=== PATIENT | female | born 1935 | race Caucasian/White ===

== ENCOUNTER 2017-09-15 13:09 | Emergency (ER) | payer OTHER ==
[~2017-09-15 13:09] MED LIST: AMIO200T2 PO; DOCU100T PO; FLUD0.1T2 PO; HYDR200T4 PO; PIND10TA2 PO; POTA10TA18 PO
[2017-09-15 13:53] LABS: BASOPHILS % (AUTO) 0.8 % (0.0-5.0); EOSINOPHILS % (AUTO) 0.9 % (0.0-8.0); HEMATOCRIT 30.6 % (36-48); MEAN CORPUSCULAR HEMOGLOBIN 34.9 pg (27.0-33.0); MEAN CORPUSCULAR HGB CONC 34.7 g/dL (32.0-36.0); MEAN CORPUSCULAR VOLUME 100.6 fL (79-99); MONOCYTES % (AUTO) 10.8 % (3.0-13.0); NEUTROPHILS % (AUTO) 59.5 % (40.0-77.0); NUCLEATED RED BLOOD CELLS 0.1 % (0.0-0.19); PLATELET COUNT (AUTO) 157 K/uL (130-400); RED BLOOD CELL COUNT(AUTO) 3.04 MIL/uL (4.00-5.50); RED CELL DISTRIBUTION WIDTH 14.6 % (11.0-15.5); WHITE BLOOD COUNT (AUTO) 3.4 K/uL (4.8-10.8)
[2017-09-15 14:11] LABS: CREATININE 0.7 mg/dL (0.5-1.5)
[2017-09-15 14:13] LABS: INR 0.95 (0.85-1.15); PARTIAL THROMBOPLASTIN TIME 24.7 SEC (26.3-35.5)
[2017-09-15 14:16] LABS: APPEARANCE,URINE Clear (CLEAR); BILIRUBIN,URINE Negative (NEGATIVE); COLOR,URINE Yellow (YELLOW); GLUCOSE, URINE (UA) Negative (NEGATIVE); KETONES,URINE Negative (NEGATIVE); LEUKOCYTE ESTERASE ,URINE Negative (NEGATIVE); NITRATE,URINE Negative (NEGATIVE); OCCULT BLOOD,URINE Negative (NEGATIVE); PH,URINE 6.5 (5.0-8.0); PROTEIN,URINE Negative (NEGATIVE); UROBILINOGEN,URINE 0.2 mg/dL (0.2-1.0)
[2017-09-15 14:25] LABS: AMPHET/METH SCREEN,URINE NEGATIVE (NEGATIVE); BARBITURATE SCREEN, URINE NEGATIVE (NEGATIVE); BENZODIAZEPINES SCREEN,URINE NEGATIVE (NEGATIVE); CANNABINOID SCREEN,URINE NEGATIVE (NEGATIVE); COCAINE SCREEN,URINE NEGATIVE (NEGATIVE); OPIATE SCREEN,URINE NEGATIVE (NEGATIVE); PHENCYCLIDINE SCREEN,URINE NEGATIVE (NEGATIVE)
[2017-09-15 14:32] LABS: ALBUMIN 3.4 g/dL (3.5-5.0); BILIRUBIN,TOTAL 0.4 mg/dL (0.2-1.0); CREATINE KINASE MB 3.1 ng/mL (0.5-3.6); TOTAL PROTEIN, SERUM 7.4 g/dL (6.0-8.3)
[2017-09-15] MEDS ORDERED: LORAZEPAM 2 MG/ML 1 ML VIAL ONE ×2 (15:03→15:30)
[2017-09-15] MEDS ORDERED: LABETALOL HCL 5 MG/ML 20ML VIAL IV ONE (16:40)
[2017-09-15] MEDS ORDERED: ASPIRIN 81MG TAB.CHEW ONE (17:08)
[2017-12-02] MEDS ORDERED: VITAMIN B12 PO (13:22)
[2017-12-02] MEDS ORDERED: BACL10TA PO (13:22)
[2017-12-02] MEDS ORDERED: ACET-2247 PO (13:22)
[2017-12-02] MEDS ORDERED: PIND10TA2 PO (13:22)
[2017-12-02] MEDS ORDERED: FERS325 PO (13:22)
[2017-12-02] MEDS ORDERED: APIX2.5T PO (13:22)
[2017-12-02] MEDS ORDERED: FOLI1TAB15 PO (13:22)
[2017-12-02] MEDS ORDERED: AEC81 PO (13:22)
== END 2017-09-15 20:01 | disposition short-term general hospital (02) ==
LOC: EDH 13:09
DX: I63.9 Cerebral infarction, unspecified (principal); R55 Syncope and collapse; I10 Essential (primary) hypertension; I48.91 Unspecified atrial fibrillation; E78.5 Hyperlipidemia, unspecified; D64.9 Anemia, unspecified; M32.9 Systemic lupus erythematosus, unspecified; Z88.2 Allergy status to sulfonamides; Z88.8 Allergy status to other drugs, medicaments and biological substances
CPT/HCPCS: 36415; 70450; 70544; 70547; 70551; 71045; 80053; 80305; 81003; 82550; 82553; 82948; 83874; 84484; 85025; 85610; 85730; 93005; 94761; 96374; 96375; 96376; 99291; J2060 ×2; J3490

== ENCOUNTER 2017-12-04 05:56 | Day surgery (SDC) | payer OTHER ==
[2017-12-02 12:54] LABS: HEMATOCRIT 33.2 % (36-48); MEAN CORPUSCULAR HGB CONC 35.7 g/dL (32.0-36.0); PLATELET COUNT (AUTO) 180 K/uL (130-400); RED BLOOD CELL COUNT(AUTO) 3.29 MIL/uL (4.00-5.50); RED CELL DISTRIBUTION WIDTH 13.4 % (11.0-15.5); WHITE BLOOD COUNT (AUTO) 3.9 K/uL (4.8-10.8)
[2017-12-02 13:10] LABS: INR 0.95 (0.85-1.15); PARTIAL THROMBOPLASTIN TIME 26.1 SEC (26.3-35.5)
[2017-12-02 13:27] LABS: CREATININE 0.8 mg/dL (0.5-1.5); POTASSIUM 4.5 mmol/L (3.5-5.1)
[2017-12-02 13:31] LABS: BAND NEUTROPHILS % (MANUAL) 1 % (0-2); LYMPHOCYTES % (MANUAL) 19 % (22-44); MAN.DIFF COMMENT-IMPRESSION MANUAL DIFFERENTIAL; MONOCYTES % (MANUAL) 9 % (2-9); SEGMENTED NEUTROPHILS % 71 % (40-70)
[2017-12-02 13:32] LABS: PLATELET MORPHOLOGY COMMENT ADEQUATE
[2017-12-04] VITALS (8 sets, daily range): BP systolic 145–198; BP diastolic 72–103
[~2017-12-04 05:56] MED LIST changes: +ACET-2247 PO; +AEC81 PO; -AMIO200T2 PO; +APIX2.5T PO; +BACL10TA PO; -DOCU100T PO; +FERS325 PO; +FOLI1TAB15 PO; -HYDR200T4 PO; +VITAMIN B12 PO
[2017-12-04] MEDS ORDERED: LIDOCAINE HCL 1% MDV 50ML VIAL ONE (07:11)
[2017-12-04] MEDS ORDERED: BUPIVACAINE/PF 0.25% 30ML VIAL IJ ONE (07:11)
[2017-12-04] MEDS ORDERED: CEFAZOLIN 1GM / D5W 50ML 150 ML ONE (07:11)
[2017-12-04] MEDS ORDERED: SODIUM CHLORIDE 0.9% 1000ML 1,000 ML IV ONE (07:21)
[2017-12-04] MEDS ORDERED: LABETALOL HCL 5 MG/ML 20ML VIAL IV ONE (07:47)
[2017-12-04] MEDS ORDERED: CEPH-577 PO (08:26)
[2017-12-04] MEDS ORDERED: ACETAMINOPHEN 325 MG TAB PO PRN (08:30)
== END 2017-12-04 11:30 | disposition home or self-care (01) ==
LOC: DAH 05:56
PROVIDERS: ATTEND Internal Medicine Cardiovascular Disease
DX: I48.0 Paroxysmal atrial fibrillation (principal); I10 Essential (primary) hypertension; G45.9 Transient cerebral ischemic attack, unspecified; Z95.1 Presence of aortocoronary bypass graft; Z98.890 Other specified postprocedural states; M32.9 Systemic lupus erythematosus, unspecified; Z79.899 Other long term (current) drug therapy; Z86.73 Personal history of transient ischemic attack (TIA), and cerebral infarction without residual deficits; Z79.01 Long term (current) use of anticoagulants
CPT/HCPCS: 33282; 36415; 80048; 85025; 85610; 85730; 93005; A4606; C1764; J0690; J3490 ×3; J7030

== ENCOUNTER 2018-08-20 14:50 | Inpatient (IN) | payer OTHER ==
[~2018-08-20] VITALS: Ht 165.1 cm; Wt 54.9 kg
[~2018-08-20 14:50] MED LIST changes: -BACL5TAB PO; -CALC-1009 PO; -CYAN-35 PO; -FERR325T22 PO
[2018-08-20 17:20] LABS: BASOPHILS % (AUTO) 0.5 % (0.0-5.0); EOSINOPHILS % (AUTO) 0.7 % (0.0-8.0); HEMATOCRIT 34.6 % (36-48); LYMPHOCYTES % (AUTO) 28.8 % (21.0-51.0); MEAN CORPUSCULAR HGB CONC 33.2 g/dL (32.0-36.0); MEAN CORPUSCULAR VOLUME 102.3 fL (79-99); MONOCYTES % (AUTO) 14.1 % (3.0-13.0); NEUTROPHILS % (AUTO) 55.9 % (40.0-77.0); NUCLEATED RED BLOOD CELLS 0.3 % (0.0-0.19); PLATELET COUNT (AUTO) 183 K/uL (130-400); RED BLOOD CELL COUNT(AUTO) 3.38 MIL/uL (4.00-5.50); RED CELL DISTRIBUTION WIDTH 14.5 % (11.0-15.5); WHITE BLOOD COUNT (AUTO) 4.3 K/uL (4.8-10.8)
[2018-08-20 17:31] LABS: CREATININE 0.9 mg/dL (0.5-1.5); POTASSIUM 4.6 mmol/L (3.5-5.1)
[2018-08-20 17:33] LABS: INR 0.94 (0.85-1.15); PROTHROMBIN TIME 9.9 SEC (9.6-11.6)
[2018-08-20 17:36] LABS: ALBUMIN 3.4 g/dL (3.5-5.0); BILIRUBIN,TOTAL 0.3 mg/dL (0.2-1.0)
[2018-08-20] MEDS ORDERED: ONDANSETRON HCL 4 MG/2 ML VIAL IVP PRN (17:45)
[2018-08-20] MEDS ORDERED: ACETAMINOPHEN 325 MG TAB PO PRN (17:45)
[2018-08-20] MEDS ORDERED: IOHEXOL-350 75 ML VIAL IV ONE (18:09)
[2018-08-20 21:30] VITALS: BP 180/100
[2018-08-20] MEDS: APIXABAN 5 MG TABLET PO SCH (22:58)
[2018-08-20] MEDS ORDERED: BACL5TAB PO (23:17)
[2018-08-20] MEDS ORDERED: FERR325T22 PO (23:17)
[2018-08-20] MEDS ORDERED: CALC-1009 PO (23:17)
[2018-08-20] MEDS ORDERED: CYAN-35 PO (23:17)
[2018-08-20] MEDS ORDERED: ONDANSETRON HCL MDV 20ML 2 MG/ML VIAL IVP PRN (23:30)
[2018-08-20] MEDS ORDERED: HYDRALAZINE HCL 20 MG/ML VIAL IV PRN (23:30)
[2018-08-20] MEDS ORDERED: HYDRALAZINE HCL 20 MG/ML VIAL ONE (23:37)
[2018-08-21] VITALS: BP 169/90
[2018-08-21 00:21] LABS: APPEARANCE,URINE Clear (CLEAR); BILIRUBIN,URINE Negative (NEGATIVE); COLOR,URINE Yellow (YELLOW); GLUCOSE, URINE (UA) Negative (NEGATIVE); KETONES,URINE Negative (NEGATIVE); LEUKOCYTE ESTERASE ,URINE Negative (NEGATIVE); NITRATE,URINE Negative (NEGATIVE); OCCULT BLOOD,URINE Negative (NEGATIVE); PROTEIN,URINE Negative (NEGATIVE); UROBILINOGEN,URINE 0.2 mg/dL (0.2-1.0)
[2018-08-21 04:00] VITALS: BP 136/83
[2018-08-21 06:01] LABS: CREATININE 0.8 mg/dL (0.5-1.5); POTASSIUM 4.2 mmol/L (3.5-5.1)
[2018-08-21 08:00] VITALS: BP 166/92
[2018-08-21] MEDS: APIXABAN 5 MG TABLET PO SCH ×2 (10:29→20:22)
[2018-08-21] MEDS: PINDOLOL 5 MG TAB PO SCH ×2 (10:29→20:22)
[2018-08-21] MEDS: PANTOPRAZOLE SODIUM 40 MG TABLET.DR PO SCH (10:29)
[2018-08-21 11:59] VITALS: BP 109/72
[2018-08-21 16:00] VITALS: BP 143/85
[2018-08-21 20:00] VITALS: BP 162/84
[2018-08-21] MEDS ORDERED: BACLOFEN 10 MG TABLET PO SCH (21:00)
[2018-08-22 00:02] VITALS: BP 170/93
[2018-08-22 04:05] VITALS: BP 152/82
[2018-08-22 05:02] LABS: HEMATOCRIT 33.6 % (36-48); MEAN CORPUSCULAR HGB CONC 33.5 g/dL (32.0-36.0); MEAN CORPUSCULAR VOLUME 101.4 fL (79-99); NUCLEATED RED BLOOD CELLS 0.1 % (0.0-0.19); PLATELET COUNT (AUTO) 188 K/uL (130-400); RED BLOOD CELL COUNT(AUTO) 3.31 MIL/uL (4.00-5.50); RED CELL DISTRIBUTION WIDTH 14.1 % (11.0-15.5); WHITE BLOOD COUNT (AUTO) 4.5 K/uL (4.8-10.8)
[2018-08-22 05:12] LABS: CREATININE 0.6 mg/dL (0.5-1.5); POTASSIUM 3.9 mmol/L (3.5-5.1)
[2018-08-22 08:05] VITALS: BP 123/72
[2018-08-22] MEDS ORDERED: CALCIUM 600 + VITAMIN D 400 TABLET PO SCH (09:00)
[2018-08-22] MEDS ORDERED: FOLIC ACID 1 MG TABLET PO SCH (09:00)
[2018-08-22] MEDS ORDERED: POTASSIUM CHLORIDE 10 MEQ/TAB.SA PO SCH (09:00)
[2018-08-22] MEDS ORDERED: FLUDROCORTISONE ACETATE 0.1 MG TABLET PO SCH (09:00)
[2018-08-22] MEDS ORDERED: CYANOCOBALAMIN (VITAMIN B-12) 1,000 MCG TABLET PO SCH (09:00)
[2018-08-22] MEDS ORDERED: FERROUS SULFATE 325 MG TABLET.DR PO SCH (09:00)
[2018-08-22] MEDS: PINDOLOL 5 MG TAB PO SCH (11:00)
[2018-08-22] MEDS: PANTOPRAZOLE SODIUM 40 MG TABLET.DR PO SCH (11:02)
[2018-08-22] MEDS: APIXABAN 5 MG TABLET PO SCH (11:03)
[2018-08-22 12:00] VITALS: BP 144/89
[2018-08-22] MEDS ORDERED: ATOR20TA65 PO (13:52)
[2018-08-23] MEDS ORDERED: ATORVASTATIN CALCIUM 20 MG TABLET PO SCH (09:00)
== END 2018-08-22 17:25 | disposition home or self-care (01) | DRG 65 ==
LOC: EDH 14:50 → EDHIP 17:10 → 3DH 20:54
PROVIDERS: ADMIT Internal Medicine; ATTEND Internal Medicine
DX: I63.9 Cerebral infarction, unspecified (principal); G81.94 Hemiplegia, unspecified affecting left nondominant side; E78.00 Pure hypercholesterolemia, unspecified; I10 Essential (primary) hypertension; E78.5 Hyperlipidemia, unspecified; I25.10 Atherosclerotic heart disease of native coronary artery without angina pectoris; I48.91 Unspecified atrial fibrillation; M48.02 Spinal stenosis, cervical region; Z79.01 Long term (current) use of anticoagulants; Z86.73 Personal history of transient ischemic attack (TIA), and cerebral infarction without residual deficits
CPT/HCPCS: 36415; 70544; 70547; 70551; 80048; 80053; 80061; 81003; 85025; 85027; 85610; 85730; 97039; G0378; J0360; Q9967

== ENCOUNTER → 2018-08-20 | Outpatient (CLI) | payer OTHER ==
[~2018-08-20] MED LIST changes: +BACL5TAB PO; +CALC-1009 PO; +CEPH-577 PO; +CYAN-35 PO; +FERR325T22 PO
== END | disposition home or self-care (01) ==
LOC: RAH 10:59
PROVIDERS: ATTEND Internal Medicine Cardiovascular Disease
DX: I67.82 Cerebral ischemia (principal); G31.9 Degenerative disease of nervous system, unspecified
CPT/HCPCS: 70551

== ENCOUNTER 2019-06-12 10:56 | Inpatient (IN) | payer OTHER ==
[~2019-06-12] VITALS: Ht 152.4 cm; Wt 53.4 kg
[~2019-06-12 10:56] MED LIST changes: -AEC81 PO; -BACL10TA PO; +BACL5TAB PO; +CALC-1009 PO; -CEPH-577 PO; +CYAN-35 PO; +FERR325T22 PO; -FERS325 PO; -VITAMIN B12 PO
[2019-06-12 11:21] LABS: BASOPHILS % (AUTO) 0.3 % (0.0-5.0); EOSINOPHILS % (AUTO) 0.8 % (0.0-8.0); HEMATOCRIT 33.3 % (36-48); LYMPHOCYTES % (AUTO) 31.9 % (21.0-51.0); MEAN CORPUSCULAR HEMOGLOBIN 34.7 pg (27.0-33.0); MEAN CORPUSCULAR HGB CONC 34.7 g/dL (32.0-36.0); MEAN CORPUSCULAR VOLUME 99.9 fL (79-99); MONOCYTES % (AUTO) 9.7 % (3.0-13.0); NEUTROPHILS % (AUTO) 57.3 % (40.0-77.0); PLATELET COUNT (AUTO) 147 K/uL (130-400); RED BLOOD CELL COUNT(AUTO) 3.33 MIL/uL (4.00-5.50); RED CELL DISTRIBUTION WIDTH 15.1 % (11.0-15.5); WHITE BLOOD COUNT (AUTO) 3.7 K/uL (4.8-10.8)
[2019-06-12 11:32] LABS: CREATININE 0.9 mg/dL (0.5-1.5); POTASSIUM 3.9 mmol/L (3.5-5.1)
[2019-06-12 11:37] LABS: ALBUMIN 3.3 g/dL (3.5-5.0); BILIRUBIN,TOTAL 0.3 mg/dL (0.2-1.0); INR 0.98 (0.85-1.15); PARTIAL THROMBOPLASTIN TIME 25.8 SEC (26.3-35.5); PROTHROMBIN TIME 10.3 SEC (9.6-11.6); TOTAL PROTEIN, SERUM 7.4 g/dL (6.0-8.3)
[2019-06-12] MEDS ORDERED: METOPROLOL TARTRATE 1 MG/ML 5ML VIAL IV ONE (11:59)
[2019-06-12] MEDS ORDERED: DILTIAZEM HCL 125 MG/25 ML VIAL IV ONE (13:01)
[2019-06-12] MEDS ORDERED: SODIUM CHLORIDE 0.9% 100 ML IV ONE (13:02)
[2019-06-12] MEDS ORDERED: ONDANSETRON HCL 4 MG/2 ML VIAL IV PRN (14:15)
[2019-06-12] MEDS ORDERED: IPRATROPIUM 0.5 MG/2.5 ML INH IH PRN (14:15)
[2019-06-12] MEDS ORDERED: MAG HYDROX/AL HYDROX/SIMETH ES 30 ML SUSP UDCUP PO PRN (14:15)
[2019-06-12] MEDS ORDERED: NITROGLYCERIN 0.4 MG SL TAB SL PRN (14:15)
[2019-06-12] MEDS ORDERED: HYDRALAZINE HCL 20 MG/ML VIAL IV PRN (14:15)
[2019-06-12] MEDS ORDERED: LACTULOSE 20 GM/30 ML UDCUP PO PRN (14:15)
[2019-06-12] MEDS ORDERED: ACETAMINOPHEN 325 MG TAB PO PRN (14:15)
[2019-06-12] MEDS ORDERED: GUAIFENESIN-DM 200/20 MG 10 ML PO PRN (14:15)
[2019-06-12 15:30] VITALS: BP 108/64
--- NOTE | 2019-06-12 15:30 | NUR ---
ADMISSION RECEIVED PT FROM ER, A&OX3, CALM COOPERATIVE AND DOES NOT APPEAR TO BE IN ANY DISTRESS NOR ANY NEURO DEFICITS PRESENT. PT IS AMBULATORY FROM GURNEY TO BED, GAIT SLOW BUT STEADY WITH ASSIST. TELE MONITOR DISPLAYS AFIB WITH A RATE OF 80-90 BEATS PER MINUTE. HIRENZEM DRIP STOPPED, ARASELI MESSINA PA-C AT BEDSIDE, UPDATE GIVEN.
[2019-06-12] MEDS ORDERED: DILTIAZEM 125MG+100 ML NS 125 ML IV SCH (16:45)
[2019-06-12 19:22] VITALS: BP 131/57
[2019-06-12] MEDS: METOPROLOL TARTRATE 25 MG TAB PO SCH (19:38)
[2019-06-12] MEDS: BACLOFEN 10 MG TABLET PO SCH (19:38)
[2019-06-12] MEDS: FAMOTIDINE 20MG TAB 20 MG TAB PO SCH (19:38)
[2019-06-12] MEDS: APIXABAN 2.5 MG TABLET PO SCH (19:40)
[2019-06-12 23:31] VITALS: BP 134/81
[2019-06-13 03:50] LABS: BASOPHILS % (AUTO) 0.4 % (0.0-5.0); EOSINOPHILS % (AUTO) 0.8 % (0.0-8.0); LYMPHOCYTES % (AUTO) 28.5 % (21.0-51.0); MEAN CORPUSCULAR HEMOGLOBIN 34.8 pg (27.0-33.0); MEAN CORPUSCULAR HGB CONC 34.7 g/dL (32.0-36.0); MONOCYTES % (AUTO) 9.7 % (3.0-13.0); NEUTROPHILS % (AUTO) 60.6 % (40.0-77.0); PLATELET COUNT (AUTO) 135 K/uL (130-400); RED CELL DISTRIBUTION WIDTH 15.1 % (11.0-15.5); WHITE BLOOD COUNT (AUTO) 5.2 K/uL (4.8-10.8)
[2019-06-13 03:57] VITALS: BP 132/83
[2019-06-13 04:01] LABS: CREATININE 0.8 mg/dL (0.5-1.5); POTASSIUM 3.7 mmol/L (3.5-5.1)
[2019-06-13 04:05] LABS: ALBUMIN 3.1 g/dL (3.5-5.0); BILIRUBIN,TOTAL 0.3 mg/dL (0.2-1.0); MAGNESIUM 1.7 mg/dL (1.80-2.40); PHOSPHORUS 3.1 mg/dL (2.5-4.9)
[2019-06-13 07:00] VITALS: BP 145/93
--- NOTE | 2019-06-13 07:40 | NUR ---
ASSESSMENT ENCOUNTERED PT A&OX3 BUT FORGETFUL, PT DENIES PAIN, SOB, NAUSEA. TELE MONITOR DISPLAYS AFIB WITH A RATE OF 90-120 BEATS PER MINUTE, CARDIZEM IV DRIP RESTARTED AT 5MG/HR, PT INFORMED TO REMAIN IN BED UNTIL HEART RATE IMPROVED. CALL LIGHT WITHIN REACH, BED ALARM ACTIVATED, SIDE RAILS UP, PATIENT IN FULL VIEW OF RN STATION.
[2019-06-13] MEDS: CYANOCOBALAMIN (VITAMIN B-12) 1,000 MCG TABLET PO SCH (08:14)
[2019-06-13] MEDS: FERROUS SULFATE 325 MG TABLET.DR PO SCH (08:14)
[2019-06-13] MEDS: APIXABAN 2.5 MG TABLET PO SCH ×2 (08:15→20:08)
[2019-06-13] MEDS: POTASSIUM CHLORIDE 10 MEQ/TAB.SA PO SCH (08:15)
[2019-06-13] MEDS: CALCIUM 600 + VITAMIN D 400 TABLET PO SCH (08:15)
[2019-06-13] MEDS: FAMOTIDINE 20MG TAB 20 MG TAB PO SCH ×2 (08:15→20:08)
[2019-06-13] MEDS: METOPROLOL TARTRATE 25 MG TAB PO SCH ×2 (08:15→20:09)
[2019-06-13] MEDS: FOLIC ACID 1 MG TABLET PO SCH (08:17)
[2019-06-13] MEDS: FLUDROCORTISONE ACETATE 0.1 MG TABLET PO SCH (09:00)
[2019-06-13 11:00] VITALS: BP 154/94
[2019-06-13 15:00] VITALS: BP 142/69
[2019-06-13] MEDS ORDERED: DILTIAZEM HCL 180 MG CAP.SR.24H PO ONE (18:33)
[2019-06-13 18:58] LABS: APPEARANCE,URINE Cloudy (CLEAR); BILIRUBIN,URINE Negative (NEGATIVE); COLOR,URINE Yellow (YELLOW); GLUCOSE, URINE (UA) Negative (NEGATIVE); KETONES,URINE Negative (NEGATIVE); LEUKOCYTE ESTERASE ,URINE Large (NEGATIVE); NITRATE,URINE Positive (NEGATIVE); OCCULT BLOOD,URINE Negative (NEGATIVE); PH,URINE 7.5 (5.0-8.0); PROTEIN,URINE Trace mg/dL (NEGATIVE)
--- NOTE | 2019-06-13 19:14 | NUR ---
cm note met with patient and states resides at home with spouse bárbara and adult grandson Vasquez. pt states ambulates with cane or walker, and has a w/c for longer distances., pt states able to do own bath, and spouse or grandson transport her to mds as needed and assist her with adls as needed states dc plan is back to home at time of dc. Addendum: 06/13/19 at 7 by NORA DAVIS CM Amended: Links added.
[2019-06-13 19:21] LABS: BACTERIA,URINE Moderate /HPF (None Seen); MUCUS,URINE Rare LPF (None Seen); SQUAMOUS EPITHELIAL CELL,UR 0-2 /HPF (0-2)
[2019-06-13] MEDS: BACLOFEN 10 MG TABLET PO SCH (20:08)
[2019-06-13 20:25] VITALS: BP 164/101
[2019-06-13 23:56] VITALS: BP 118/74
[2019-06-14 04:01] LABS: BASOPHILS % (AUTO) 0.3 % (0.0-5.0); EOSINOPHILS % (AUTO) 0.5 % (0.0-8.0); MEAN CORPUSCULAR HEMOGLOBIN 34.5 pg (27.0-33.0); MEAN CORPUSCULAR HGB CONC 34.4 g/dL (32.0-36.0); MEAN CORPUSCULAR VOLUME 100.3 fL (79-99); MONOCYTES % (AUTO) 9.7 % (3.0-13.0); NEUTROPHILS % (AUTO) 62.5 % (40.0-77.0); PLATELET COUNT (AUTO) 139 K/uL (130-400); RED BLOOD CELL COUNT(AUTO) 3.29 MIL/uL (4.00-5.50); WHITE BLOOD COUNT (AUTO) 5.3 K/uL (4.8-10.8)
[2019-06-14 04:16] VITALS: BP 142/94
[2019-06-14 04:20] LABS: CREATININE 0.6 mg/dL (0.5-1.5); MAGNESIUM 1.6 mg/dL (1.80-2.40); PHOSPHORUS 2.8 mg/dL (2.5-4.9); POTASSIUM 3.8 mmol/L (3.5-5.1)
[2019-06-14 07:44] VITALS: BP 147/85
[2019-06-14] MEDS: CALCIUM 600 + VITAMIN D 400 TABLET PO SCH (09:14)
[2019-06-14] MEDS: FOLIC ACID 1 MG TABLET PO SCH (09:14)
[2019-06-14] MEDS: CYANOCOBALAMIN (VITAMIN B-12) 1,000 MCG TABLET PO SCH (09:14)
[2019-06-14] MEDS: FAMOTIDINE 20MG TAB 20 MG TAB PO SCH ×2 (09:14→20:04)
[2019-06-14] MEDS: FLUDROCORTISONE ACETATE 0.1 MG TABLET PO SCH (09:14)
[2019-06-14] MEDS ORDERED: MAGNESIUM 2GM PREMIX 50ML 50 ML IV PRN ×2 (09:15→10:30)
[2019-06-14] MEDS: APIXABAN 2.5 MG TABLET PO SCH ×2 (09:15→20:08)
[2019-06-14] MEDS: METOPROLOL TARTRATE 25 MG TAB PO SCH ×2 (09:15→20:04)
[2019-06-14] MEDS: DILTIAZEM HCL 180 MG CAP.SR.24H PO SCH (09:15)
[2019-06-14] MEDS: POTASSIUM CHLORIDE 10 MEQ/TAB.SA PO SCH (09:16)
[2019-06-14] MEDS: FERROUS SULFATE 325 MG TABLET.DR PO SCH (09:19)
[2019-06-14] MEDS: CEFTRIAXONE SODIUM 1 GM IVP SCH ×2 (10:30→22:37)
[2019-06-14 11:27] VITALS: BP 133/70
[2019-06-14 16:02] VITALS: BP 132/71
[2019-06-14 19:54] VITALS: BP_SYST 107; BP_SYST 133; BP_DIAS 51; BP_DIAS 60
[2019-06-14] MEDS: BACLOFEN 10 MG TABLET PO SCH (20:08)
[2019-06-14 23:54] VITALS: BP 98/45
[2019-06-15 03:42] LABS: BASOPHILS % (AUTO) 0.3 % (0.0-5.0); EOSINOPHILS % (AUTO) 0.4 % (0.0-8.0); HEMATOCRIT 30.9 % (36-48); LYMPHOCYTES % (AUTO) 31.6 % (21.0-51.0); MEAN CORPUSCULAR HGB CONC 34.8 g/dL (32.0-36.0); MEAN CORPUSCULAR VOLUME 100.5 fL (79-99); MONOCYTES % (AUTO) 12.1 % (3.0-13.0); NEUTROPHILS % (AUTO) 55.6 % (40.0-77.0); NUCLEATED RED BLOOD CELLS 0.1 % (0.0-0.19); PLATELET COUNT (AUTO) 128 K/uL (130-400); RED BLOOD CELL COUNT(AUTO) 3.07 MIL/uL (4.00-5.50); RED CELL DISTRIBUTION WIDTH 14.9 % (11.0-15.5)
[2019-06-15 03:51] LABS: CREATININE 0.7 mg/dL (0.5-1.5); MAGNESIUM 1.9 mg/dL (1.80-2.40); POTASSIUM 3.9 mmol/L (3.5-5.1)
[2019-06-15 04:28] VITALS: BP 118/69
[2019-06-15] MEDS: CYANOCOBALAMIN (VITAMIN B-12) 1,000 MCG TABLET PO SCH (07:25)
[2019-06-15] MEDS: CEFTRIAXONE SODIUM 1 GM IVP SCH ×2 (07:25→20:26)
[2019-06-15] MEDS: METOPROLOL TARTRATE 25 MG TAB PO SCH ×2 (07:26→20:25)
[2019-06-15] MEDS: FOLIC ACID 1 MG TABLET PO SCH (07:26)
[2019-06-15] MEDS: DILTIAZEM HCL 180 MG CAP.SR.24H PO SCH (07:26)
[2019-06-15] MEDS: APIXABAN 2.5 MG TABLET PO SCH ×2 (07:26→20:25)
[2019-06-15] MEDS: FAMOTIDINE 20MG TAB 20 MG TAB PO SCH ×2 (07:26→20:47)
[2019-06-15] MEDS: CALCIUM 600 + VITAMIN D 400 TABLET PO SCH (07:26)
[2019-06-15] MEDS: FLUDROCORTISONE ACETATE 0.1 MG TABLET PO SCH (07:26)
[2019-06-15] MEDS: FERROUS SULFATE 325 MG TABLET.DR PO SCH (07:26)
[2019-06-15] MEDS: POTASSIUM CHLORIDE 10 MEQ/TAB.SA PO SCH (07:26)
--- NOTE | 2019-06-15 08:00 | NUR ---
ASSESSMENT PT IS AWAKE AND ALERT, DENIES CP DENIES SOB DENIES NV NO COMPLAINTS RESTING IN BED. NO VISIBLE SIGNS OF DISTRESS NOTED, BREATHING PATTERN IS EVEN AND UNLABORED. CALL LIGHT WITHIN REACH. AM MEDS GIVEN AND TOLERATED WELL. DOOR AJAR BLINDS OPEN.
[2019-06-15 08:04] VITALS: BP 118/88
[2019-06-15 12:03] VITALS: BP 111/73
[2019-06-15 16:31] VITALS: BP 111/42
--- NOTE | 2019-06-15 18:00 | NUR ---
STATUS RESTING IN BED. DENIES PAIN NO COMPLAINTS, CALL LIGHT WITHIN REACH.
[2019-06-15 19:27] VITALS: BP 151/91
[2019-06-15] MEDS: BACLOFEN 10 MG TABLET PO SCH (20:25)
[2019-06-15 23:44] VITALS: BP 149/88
[2019-06-16 04:37] LABS: CREATININE 0.7 mg/dL (0.5-1.5); POTASSIUM 3.8 mmol/L (3.5-5.1)
[2019-06-16 04:40] LABS: HEMATOCRIT 30.5 % (36-48); MEAN CORPUSCULAR HEMOGLOBIN 34.7 pg (27.0-33.0); MEAN CORPUSCULAR HGB CONC 34.8 g/dL (32.0-36.0); MEAN CORPUSCULAR VOLUME 99.6 fL (79-99); PLATELET COUNT (AUTO) 137 K/uL (130-400); RED BLOOD CELL COUNT(AUTO) 3.06 MIL/uL (4.00-5.50); RED CELL DISTRIBUTION WIDTH 14.7 % (11.0-15.5)
[2019-06-16 05:24] VITALS: BP 140/83
[2019-06-16] MEDS: CYANOCOBALAMIN (VITAMIN B-12) 1,000 MCG TABLET PO SCH (07:32)
[2019-06-16] MEDS: APIXABAN 2.5 MG TABLET PO SCH ×2 (07:32→21:11)
[2019-06-16] MEDS: METOPROLOL TARTRATE 25 MG TAB PO SCH ×2 (07:32→21:11)
[2019-06-16] MEDS: CALCIUM 600 + VITAMIN D 400 TABLET PO SCH (07:32)
[2019-06-16] MEDS: FAMOTIDINE 20MG TAB 20 MG TAB PO SCH ×2 (07:32→21:10)
[2019-06-16] MEDS: DILTIAZEM HCL 180 MG CAP.SR.24H PO SCH (07:32)
[2019-06-16] MEDS: FERROUS SULFATE 325 MG TABLET.DR PO SCH (07:32)
[2019-06-16] MEDS: FOLIC ACID 1 MG TABLET PO SCH (07:32)
[2019-06-16] MEDS: POTASSIUM CHLORIDE 10 MEQ/TAB.SA PO SCH (07:33)
[2019-06-16] MEDS: CEFTRIAXONE SODIUM 1 GM IVP SCH ×2 (07:33→21:47)
[2019-06-16] MEDS: FLUDROCORTISONE ACETATE 0.1 MG TABLET PO SCH (07:33)
[2019-06-16 07:59] VITALS: BP 140/99
--- NOTE | 2019-06-16 08:15 | NUR ---
ASSESSMENT PT IS AAOX3 DENIES CP DENIES SOB DENIES NV COMPLAINS OF HEADACHE, PRN TYLENOL GIVEN. RESTING IN BED. AM MEDS GIVEN. CHAR BROWN PA-C ROUNDED, SAW PATIENT. ORDERS RECEIVED
[2019-06-16] MEDS: ACETAMINOPHEN 325 MG TAB PO PRN (08:22)
[2019-06-16] MEDS ORDERED: PROPAFENONE HCL 150 MG TABLET PO SCH (09:45)
--- NOTE | 2019-06-16 10:01 | NUR ---
DR UMANZOR ROUNDED PLAN FOR CARDIOVERSION TOMORROW AM WITH ANESTHESIA AT BEDSIDE. CALLED WELFARE CASE WORKER ROSALINDA, LEFT MESSAGE ON HER VOICEMAIL REGARDING NEED FOR ANESTHESIA PER DR UMANZOR.
--- NOTE | 2019-06-16 10:45 | NUR ---
DR ATLAMIRANO ROUNDED SAW PATIENT, ORDERS RECEIVED
--- NOTE | 2019-06-16 10:50 | NUR ---
FAXED ORDER FOR CARDIOVERSION W/ANESTHESIA TO OR SCHEDULING #7379. VASU AT OR SCHED MADE AWARE. CONSENT FOR CARDIOVERSION OBTAINED
[2019-06-16 11:39] VITALS: BP 126/75
--- NOTE | 2019-06-16 12:45 | NUR ---
DOWN TO CT SCAN VIA WC, BACK TO ROOM. ASSISTED TO BED. NO COMPLAINTS AT THIS TIME, CALL LIGHT WITHIN REACH.
[2019-06-16 16:22] VITALS: BP 125/66
[2019-06-16] MEDS: PROPAFENONE HCL 150 MG TABLET PO SCH (17:00)
[2019-06-16 20:14] VITALS: BP 125/78
[2019-06-16] MEDS: BACLOFEN 10 MG TABLET PO SCH (21:11)
[2019-06-17] VITALS (7 sets, daily range): BP systolic 120–141; BP diastolic 58–90
[2019-06-17] MEDS: PROPAFENONE HCL 150 MG TABLET PO SCH ×4 (01:10→17:40)
[2019-06-17] MEDS: ACETAMINOPHEN 325 MG TAB PO PRN ×2 (04:52→16:06)
--- NOTE | 2019-06-17 05:57 | NUR ---
STATUS PATIENT MORE LETHARGIC AND DIFFICULT TO AROUSE. ONCE AROUSED RESPONDS APPROPRIATELY VERBALLY AND NODS HEAD YES AND NO. BRIEFLY THEN BACK TO BEING LETHARGIC. TRACKS VISUALLY PT RHYTHM IS A FLUTTER 100 PER TELEMETRY. VS BP 128/80 SPO2 96% R 24. FSBS 125. ROLL SHEETING CUTTER FOR BENCHMARK PAGED AND NOTIFIED. PATIENT HAD CT SCAN ON 06/16/19, RESULTS REVIEWED. ORDERS FOR STAT AMMONIA LEVEL. ORDERS TO NOTIFY NEUROLOGY IN AM.
[2019-06-17 06:09] LABS: HEMATOCRIT 29.7 % (36-48); MEAN CORPUSCULAR HEMOGLOBIN 34.8 pg (27.0-33.0); MEAN CORPUSCULAR VOLUME 99.4 fL (79-99); PLATELET COUNT (AUTO) 137 K/uL (130-400); RED BLOOD CELL COUNT(AUTO) 2.98 MIL/uL (4.00-5.50); RED CELL DISTRIBUTION WIDTH 14.4 % (11.0-15.5)
[2019-06-17 06:10] LABS: CREATININE 0.7 mg/dL (0.5-1.5); POTASSIUM 3.7 mmol/L (3.5-5.1)
--- NOTE | 2019-06-17 06:46 | NUR ---
STATUS NEUROLOGY CALLED. LEFT MESSAGE
--- NOTE | 2019-06-17 07:30 | NUR ---
RESTING IN BED WITH HOB AT 30 DEGREES, RESP.'S EVEN AND UNLABORED. EYES CLOSED, OPENS EYES TO VERBAL COMMAND. LETHARGIC BUT AROUSABLE. DENIES ANY C/O SOB, DENIES ANY CURRENT PAIN. BED LOW, SIDE RAILS UP X3. CALL LIGHT PLACED IN PT.'S HAND. ROOM DOOR OPEN, VISIBLE FROM NURSE'S STATION.
[2019-06-17 07:47] LABS: ABG HCO3 20.4 mmol/L (21.0-28.0); ABG OXYGEN SATURATION 97.3 % (95.0-99.0); ABG PCO2 26 mmHg (32-45)
--- NOTE | 2019-06-17 07:53 | NUR ---
ABG RESULTS HANDED TO KRISTIE BEATTY, AT NURSE'S STATION. NO NEW ORDERS RECEIVED AT THIS TIME.
[2019-06-17] MEDS: DILTIAZEM HCL 180 MG CAP.SR.24H PO SCH ×2 (08:43→10:54)
[2019-06-17] MEDS: CALCIUM 600 + VITAMIN D 400 TABLET PO SCH ×2 (08:43→10:54)
[2019-06-17] MEDS: POTASSIUM CHLORIDE 10 MEQ/TAB.SA PO SCH ×2 (08:44→10:53)
[2019-06-17] MEDS: APIXABAN 2.5 MG TABLET PO SCH ×3 (08:44→21:12)
[2019-06-17] MEDS: FAMOTIDINE 20MG TAB 20 MG TAB PO SCH ×3 (08:44→21:12)
[2019-06-17] MEDS: FLUDROCORTISONE ACETATE 0.1 MG TABLET PO SCH ×2 (08:44→10:53)
[2019-06-17] MEDS: CYANOCOBALAMIN (VITAMIN B-12) 1,000 MCG TABLET PO SCH ×2 (08:44→10:54)
[2019-06-17] MEDS: FERROUS SULFATE 325 MG TABLET.DR PO SCH ×2 (08:44→10:54)
[2019-06-17] MEDS: METOPROLOL TARTRATE 25 MG TAB PO SCH ×3 (08:44→21:13)
[2019-06-17] MEDS: FOLIC ACID 1 MG TABLET PO SCH ×2 (08:44→10:54)
--- NOTE | 2019-06-17 09:10 | NUR ---
PT. SITTING UP IN BED. AAOX3, RESP.'S EVEN AND UNLABORED. DENIES ANY C/O SOB, DENIES ANY PAIN. DENIES ANY DIZZINESS OR LIGHTHEADEDNESS. CALL LIGHT WITHIN REACH, VERBALIZED ABILITY TO USE. ROOM DOOR OPEN, VISIBLE FROM NURSE'S STATION.
--- NOTE | 2019-06-17 10:15 | NUR ---
DR. ALTAMIRANO IN ROOM SPEAKING WITH PT. AND INFORMING PT. OF EEG RESULTS. DR. ALTAMIRANO MADE AWARE BY THIS NURSE RE:PT.'S EPISODE OF LETHARGY, VERBALIZED UNDERSTANDING. NO NEW ORDERS RECEIVED.
[2019-06-17] MEDS: CEFTRIAXONE SODIUM 1 GM IVP SCH ×2 (10:55→21:57)
--- NOTE | 2019-06-17 13:44 | NUR ---
DR. SOLORIO IN ROOM SPEAKING WITH PT. RE:PLAN OF CARE.
[2019-06-17] MEDS: SODIUM CHLORIDE 1,000 MG TAB PO SCH ×3 (14:15→21:54)
--- NOTE | 2019-06-17 15:01 | NUR ---
RD Screen - LOS x 5 Pt s/p Cardioversion procedure. Diet resumed and Pt tolerating Heart healthy Diet order with no report of GI distress and PO intake at 75-100%. Upon visit, Pt reports difficulty eating due to shakiness; RD recommend feeding assistance as needed. Recommend to continue current diet order. Pt LBM 06/17. Pt monitored labs: Na 125, Cl 93, Glu 125, Alb 3.1. RD to continue to monitor. Please notify RD as additional nutrition concerns arise. Thank you. Addendum: 06/17/19 at [address] Amended: Links added.
[2019-06-17] MEDS ORDERED: PHARMACY COMMUNICATION MISC SCH (15:30)
--- NOTE | 2019-06-17 16:10 | NUR ---
HEATING PACKS X3 (WRAPPED IN PILLOW CASE) PROVIDED TO LEFT HIP PAIN.
--- NOTE | 2019-06-17 17:17 | NUR ---
DR. Lilliana IBARRA IN ROOM SPEAKING WITH PT. RE:PLAN OF CARE. QUESTIONS ANSWERED BY DR. IBARRA.
[2019-06-17] MEDS: BACLOFEN 10 MG TABLET PO SCH (21:12)
[2019-06-17] MEDS ORDERED: SODIUM CHLORIDE 0.9% 10 ML VIAL ONE (21:56)
[2019-06-18] MEDS: PROPAFENONE HCL 150 MG TABLET PO SCH ×3 (01:24→17:45)
[2019-06-18 03:52] LABS: HEMATOCRIT 29.1 % (36-48); MEAN CORPUSCULAR HEMOGLOBIN 35.1 pg (27.0-33.0); MEAN CORPUSCULAR HGB CONC 35.1 g/dL (32.0-36.0); MEAN CORPUSCULAR VOLUME 99.7 fL (79-99); PLATELET COUNT (AUTO) 135 K/uL (130-400); RED BLOOD CELL COUNT(AUTO) 2.92 MIL/uL (4.00-5.50); RED CELL DISTRIBUTION WIDTH 14.8 % (11.0-15.5); WHITE BLOOD COUNT (AUTO) 7.5 K/uL (4.8-10.8)
[2019-06-18 04:00] VITALS: BP 136/78
[2019-06-18 04:02] LABS: CREATININE 0.8 mg/dL (0.5-1.5); POTASSIUM 4.4 mmol/L (3.5-5.1)
[2019-06-18] MEDS: SODIUM CHLORIDE 1,000 MG TAB PO SCH ×3 (06:09→21:46)
[2019-06-18 07:46] VITALS: BP 116/92
[2019-06-18] MEDS: FERROUS SULFATE 325 MG TABLET.DR PO SCH (08:48)
[2019-06-18] MEDS: POTASSIUM CHLORIDE 10 MEQ/TAB.SA PO SCH (08:49)
[2019-06-18] MEDS: DILTIAZEM HCL 180 MG CAP.SR.24H PO SCH (08:50)
[2019-06-18] MEDS: APIXABAN 2.5 MG TABLET PO SCH ×2 (08:50→21:42)
[2019-06-18] MEDS: FAMOTIDINE 20MG TAB 20 MG TAB PO SCH ×2 (08:50→21:37)
[2019-06-18] MEDS: CYANOCOBALAMIN (VITAMIN B-12) 1,000 MCG TABLET PO SCH (08:51)
[2019-06-18] MEDS: METOPROLOL TARTRATE 25 MG TAB PO SCH ×2 (08:51→21:41)
[2019-06-18] MEDS: FOLIC ACID 1 MG TABLET PO SCH (08:51)
[2019-06-18] MEDS: CALCIUM 600 + VITAMIN D 400 TABLET PO SCH (08:51)
[2019-06-18] MEDS: FLUDROCORTISONE ACETATE 0.1 MG TABLET PO SCH (08:51)
[2019-06-18] MEDS ORDERED: SODIUM CHLORIDE 1,000 MG TAB PO SCH (09:00)
[2019-06-18] MEDS: CEFTRIAXONE SODIUM 1 GM IVP SCH ×2 (11:23→21:42)
[2019-06-18] MEDS: ACETAMINOPHEN 325 MG TAB PO PRN ×2 (11:23→18:30)
[2019-06-18 11:52] VITALS: BP 115/74
--- NOTE | 2019-06-18 13:30 | NUR ---
REPOSITIONED IN RECLINER FOR COMFORT. CALL LIGHT WITHIN REACH. ROOM DOOR OPEN, VISIBLE FROM NURSE'S STATION.
[2019-06-18 15:06] VITALS: BP 89/58
--- NOTE | 2019-06-18 16:00 | NUR ---
OFFERED PT. ASSISTANCE TO RETURN TO BED IF WISHES. PT. DECLINED, STATES WOULD LIKE TO STAY IN RECLINER. CALL LIGHT WITHIN REACH. ROOM DOOR OPEN, VISIBLE FROM NURSE'S STATION.
--- NOTE | 2019-06-18 18:05 | NUR ---
ASSISTED BACK TO BED FROM RECLINER; ONE PERSON ASSIST. CALL LIGHT WITHIN REACH. ROOM DOOR OPEN, VISIBLE FROM NURSE'S STATION.
[2019-06-18 19:34] VITALS: BP 131/79
[2019-06-18] MEDS: BACLOFEN 10 MG TABLET PO SCH (21:41)
[2019-06-18 23:41] VITALS: BP 112/71
[2019-06-19 02:44] VITALS: BP 136/74
[2019-06-19] MEDS: PROPAFENONE HCL 150 MG TABLET PO SCH ×3 (02:48→17:17)
[2019-06-19 04:18] LABS: CREATININE 0.6 mg/dL (0.5-1.5); POTASSIUM 4.2 mmol/L (3.5-5.1)
[2019-06-19 04:24] LABS: HEMATOCRIT 27.5 % (36-48); MEAN CORPUSCULAR HEMOGLOBIN 34.4 pg (27.0-33.0); MEAN CORPUSCULAR HGB CONC 34.2 g/dL (32.0-36.0); MEAN CORPUSCULAR VOLUME 100.7 fL (79-99); PLATELET COUNT (AUTO) 128 K/uL (130-400); RED BLOOD CELL COUNT(AUTO) 2.73 MIL/uL (4.00-5.50); RED CELL DISTRIBUTION WIDTH 14.9 % (11.0-15.5); WHITE BLOOD COUNT (AUTO) 4.8 K/uL (4.8-10.8)
[2019-06-19] MEDS: SODIUM CHLORIDE 1,000 MG TAB PO SCH ×3 (06:11→20:52)
[2019-06-19] MEDS: ACETAMINOPHEN 325 MG TAB PO PRN ×2 (06:34→20:50)
[2019-06-19 07:36] VITALS: BP 133/75
[2019-06-19] MEDS: FLUDROCORTISONE ACETATE 0.1 MG TABLET PO SCH ×2 (10:03→20:52)
[2019-06-19] MEDS: CALCIUM 600 + VITAMIN D 400 TABLET PO SCH (10:03)
[2019-06-19] MEDS: FERROUS SULFATE 325 MG TABLET.DR PO SCH (10:03)
[2019-06-19] MEDS: CEFTRIAXONE SODIUM 1 GM IVP SCH ×2 (10:03→23:01)
[2019-06-19] MEDS: DILTIAZEM HCL 180 MG CAP.SR.24H PO SCH (10:03)
[2019-06-19] MEDS: FAMOTIDINE 20MG TAB 20 MG TAB PO SCH ×2 (10:03→20:50)
[2019-06-19] MEDS: APIXABAN 2.5 MG TABLET PO SCH ×2 (10:04→20:52)
[2019-06-19] MEDS: FOLIC ACID 1 MG TABLET PO SCH (10:04)
[2019-06-19] MEDS: CYANOCOBALAMIN (VITAMIN B-12) 1,000 MCG TABLET PO SCH (10:04)
[2019-06-19] MEDS: POTASSIUM CHLORIDE 10 MEQ/TAB.SA PO SCH (10:04)
[2019-06-19] MEDS: METOPROLOL TARTRATE 25 MG TAB PO SCH ×2 (10:04→20:50)
--- NOTE | 2019-06-19 11:32 | NUR ---
DC PLAN VISITED WITH PATIENT SEVERAL TIMES. PATIENT APPEARED TIRED MOST OF THEM WAS ASLEEP DID NOT WANT TO ANSWER QUESTIONS. SPOKE TO HER YESTERDAY SAID NO PLAN IS STILL TO GO HOME. REFUSES TO GO TO A FACILITY. Addendum: 06/19/19 at 1133 by MIREILLE VARMA RN CM Amended: Links added.
[2019-06-19 11:45] VITALS: BP 123/59
[2019-06-19 15:39] VITALS: BP 114/72
[2019-06-19] MEDS: BACLOFEN 10 MG TABLET PO SCH (20:50)
[2019-06-19 20:54] VITALS: BP 155/88
[2019-06-19 23:54] VITALS: BP 143/79
[2019-06-20] MEDS: PROPAFENONE HCL 150 MG TABLET PO SCH ×3 (01:32→17:28)
[2019-06-20 04:15] LABS: CREATININE 0.6 mg/dL (0.5-1.5); POTASSIUM 3.7 mmol/L (3.5-5.1)
[2019-06-20 04:18] LABS: HEMATOCRIT 27.2 % (36-48); MEAN CORPUSCULAR HEMOGLOBIN 34.8 pg (27.0-33.0); MEAN CORPUSCULAR HGB CONC 35.1 g/dL (32.0-36.0); PLATELET COUNT (AUTO) 143 K/uL (130-400); RED BLOOD CELL COUNT(AUTO) 2.75 MIL/uL (4.00-5.50); RED CELL DISTRIBUTION WIDTH 14.7 % (11.0-15.5); WHITE BLOOD COUNT (AUTO) 2.9 K/uL (4.8-10.8)
[2019-06-20 04:42] VITALS: BP 154/72
[2019-06-20 04:44] LABS: LYMPHOCYTES % (MANUAL) 39 % (22-44); MAN.DIFF COMMENT-IMPRESSION MANUAL DIFFERENTIAL; MONOCYTES % (MANUAL) 7 % (2-9); PLATELET MORPHOLOGY COMMENT ADEQUATE; REACTIVE LYMPHOCYTES 3 % (0-0); SEGMENTED NEUTROPHILS % 51 % (40-70)
[2019-06-20] MEDS: SODIUM CHLORIDE 1,000 MG TAB PO SCH ×3 (06:19→20:16)
[2019-06-20 07:27] VITALS: BP 147/78
[2019-06-20] MEDS ORDERED: SODIUM CHLORIDE 1,000 MG TAB PO SCH ×2 (09:00→21:00)
[2019-06-20] MEDS: CEFTRIAXONE SODIUM 1 GM IVP SCH ×2 (10:11→20:23)
[2019-06-20] MEDS: CALCIUM 600 + VITAMIN D 400 TABLET PO SCH (10:11)
[2019-06-20] MEDS: FERROUS SULFATE 325 MG TABLET.DR PO SCH (10:11)
[2019-06-20] MEDS: FLUDROCORTISONE ACETATE 0.1 MG TABLET PO SCH ×2 (10:12→20:14)
[2019-06-20] MEDS: APIXABAN 2.5 MG TABLET PO SCH ×2 (10:12→20:14)
[2019-06-20] MEDS: FOLIC ACID 1 MG TABLET PO SCH (10:12)
[2019-06-20] MEDS: DILTIAZEM HCL 180 MG CAP.SR.24H PO SCH (10:12)
[2019-06-20] MEDS: FAMOTIDINE 20MG TAB 20 MG TAB PO SCH ×2 (10:12→20:13)
[2019-06-20] MEDS: POTASSIUM CHLORIDE 10 MEQ/TAB.SA PO SCH (10:13)
[2019-06-20] MEDS: METOPROLOL TARTRATE 25 MG TAB PO SCH ×2 (10:13→20:14)
[2019-06-20] MEDS: CYANOCOBALAMIN (VITAMIN B-12) 1,000 MCG TABLET PO SCH (10:13)
[2019-06-20 11:16] VITALS: BP 152/79
[2019-06-20 14:55] VITALS: BP 147/89
[2019-06-20] MEDS: ACETAMINOPHEN 325 MG TAB PO PRN (17:09)
[2019-06-20] MEDS: BACLOFEN 10 MG TABLET PO SCH (20:13)
[2019-06-20 20:26] VITALS: BP 180/99
--- NOTE | 2019-06-20 22:45 | NUR ---
IV INFILTRATED IV FLUSHED,LEAKING. PATIENT IS REFUSING NEW IV. PATIENT SAID, "NOBODY IS GOING TO START AN IV ON ME." WILL ATTEMPT LATER ON IN THE SHIFT.
[2019-06-21 00:08] VITALS: BP 149/65
[2019-06-21] MEDS: PROPAFENONE HCL 150 MG TABLET PO SCH ×2 (01:54→09:34)
[2019-06-21 04:31] LABS: HEMATOCRIT 28.5 % (36-48); MEAN CORPUSCULAR HEMOGLOBIN 34.2 pg (27.0-33.0); MEAN CORPUSCULAR HGB CONC 34.6 g/dL (32.0-36.0); MEAN CORPUSCULAR VOLUME 98.9 fL (79-99); NUCLEATED RED BLOOD CELLS 0.1 % (0.0-0.19); PLATELET COUNT (AUTO) 155 K/uL (130-400); RED BLOOD CELL COUNT(AUTO) 2.88 MIL/uL (4.00-5.50); RED CELL DISTRIBUTION WIDTH 14.8 % (11.0-15.5); WHITE BLOOD COUNT (AUTO) 2.8 K/uL (4.8-10.8)
[2019-06-21 04:37] LABS: CREATININE 0.6 mg/dL (0.5-1.5)
[2019-06-21 05:15] VITALS: BP 168/94
[2019-06-21] MEDS: SODIUM CHLORIDE 1,000 MG TAB PO SCH ×2 (06:02→15:27)
[2019-06-21] MEDS: POTASSIUM CHLORIDE 10 MEQ/TAB.SA PO SCH (06:03)
[2019-06-21 07:50] VITALS: BP 151/87
[2019-06-21] MEDS: FOLIC ACID 1 MG TABLET PO SCH (09:34)
[2019-06-21] MEDS: DILTIAZEM HCL 180 MG CAP.SR.24H PO SCH (09:34)
[2019-06-21] MEDS: METOPROLOL TARTRATE 25 MG TAB PO SCH (09:34)
[2019-06-21] MEDS: CYANOCOBALAMIN (VITAMIN B-12) 1,000 MCG TABLET PO SCH (09:34)
[2019-06-21] MEDS: FERROUS SULFATE 325 MG TABLET.DR PO SCH (09:34)
[2019-06-21] MEDS: CALCIUM 600 + VITAMIN D 400 TABLET PO SCH (09:34)
[2019-06-21] MEDS: APIXABAN 2.5 MG TABLET PO SCH (09:35)
[2019-06-21] MEDS: FLUDROCORTISONE ACETATE 0.1 MG TABLET PO SCH (09:35)
[2019-06-21] MEDS: FAMOTIDINE 20MG TAB 20 MG TAB PO SCH (09:35)
[2019-06-21 11:14] VITALS: BP 124/78
[2019-06-21] MEDS ORDERED: METO25 PO (14:21)
[2019-06-21] MEDS ORDERED: FLUD.1 PO (14:21)
[2019-06-21] MEDS ORDERED: SODI100037 PO (14:21)
[2019-06-21] MEDS ORDERED: PROP150T28 PO (14:21)
== END 2019-06-21 15:43 | disposition home or self-care (01) | DRG 309 ==
LOC: EDH 10:56 → OBSVTOIN 13:49 → EDHIP 13:49 → 2AH 15:30
PROVIDERS: ADMIT Internal Medicine Critical Care Medicine; ATTEND Internal Medicine Critical Care Medicine
PROC: 5A2204Z Restoration of Cardiac Rhythm, Single (ICD-10-PCS; principal; 2019-06-17)
PROC: 4A00X4Z Measurement of Central Nervous Electrical Activity, External Approach (ICD-10-PCS; 2019-06-17)
DX: I48.0 Paroxysmal atrial fibrillation (principal); N39.0 Urinary tract infection, site not specified; D68.69 Other thrombophilia; E87.1 Hypo-osmolality and hyponatremia; E87.3 Alkalosis; I48.4 Atypical atrial flutter; E83.42 Hypomagnesemia; I35.1 Nonrheumatic aortic (valve) insufficiency; M32.9 Systemic lupus erythematosus, unspecified; I95.1 Orthostatic hypotension; I25.10 Atherosclerotic heart disease of native coronary artery without angina pectoris; D64.9 Anemia, unspecified; R32 Unspecified urinary incontinence; F03.90 Unspecified dementia, unspecified severity, without behavioral disturbance, psychotic disturbance, mood disturbance, and anxiety; E78.5 Hyperlipidemia, unspecified; I10 Essential (primary) hypertension; I25.2 Old myocardial infarction; Z79.01 Long term (current) use of anticoagulants; Z95.1 Presence of aortocoronary bypass graft; Z88.2 Allergy status to sulfonamides; Z88.8 Allergy status to other drugs, medicaments and biological substances; Z82.49 Family history of ischemic heart disease and other diseases of the circulatory system
CPT/HCPCS: 36415; 36600; 70450; 71045; 80048; 80053; 81001; 82140; 82533; 82550; 82803; 82948; 83735; 84100; 84443; 84484; 85025; 85027; 85610; 85730; 87088; 93005; 93306; 94640; 94664; 94760; 95816; 97039; 99291; A4606; G0378; J0360; J0696; J3475; J3490

== ENCOUNTER 2019-06-29 13:21 | Inpatient (IN) | payer OTHER ==
[~2019-06-29] VITALS: Ht 157.5 cm; Wt 49.0 kg
[~2019-06-29 13:21] MED LIST changes: +FLUD.1 PO; -FLUD0.1T2 PO; +METO25 PO; -PIND10TA2 PO; +PROP150T28 PO; +SODI100037 PO
[2019-06-29 14:25] LABS: BASOPHILS % (AUTO) 0.3 % (0.0-5.0); EOSINOPHILS % (AUTO) 0.2 % (0.0-8.0); HEMATOCRIT 33.8 % (36-48); LYMPHOCYTES % (AUTO) 24.1 % (21.0-51.0); MEAN CORPUSCULAR HEMOGLOBIN 34.9 pg (27.0-33.0); MEAN CORPUSCULAR HGB CONC 34.7 g/dL (32.0-36.0); MEAN CORPUSCULAR VOLUME 100.5 fL (79-99); MONOCYTES % (AUTO) 8.6 % (3.0-13.0); NEUTROPHILS % (AUTO) 66.8 % (40.0-77.0); NUCLEATED RED BLOOD CELLS 0.2 % (0.0-0.19); PLATELET COUNT (AUTO) 182 K/uL (130-400); RED BLOOD CELL COUNT(AUTO) 3.36 MIL/uL (4.00-5.50); RED CELL DISTRIBUTION WIDTH 15.2 % (11.0-15.5); WHITE BLOOD COUNT (AUTO) 4.4 K/uL (4.8-10.8)
[2019-06-29] MEDS ORDERED: TETANUS/DIPHTHERIA TOXOID [ADULT] 0.5 ML VIAL IM ONE (14:42)
[2019-06-29 14:46] LABS: B-TYPE NATRIURETIC PEPTIDE 2450 pg/mL (0-100); CREATININE 0.7 mg/dL (0.5-1.5); POTASSIUM 3.4 mmol/L (3.5-5.1)
[2019-06-29 14:51] LABS: ALBUMIN 3.7 g/dL (3.5-5.0); BILIRUBIN,TOTAL 0.8 mg/dL (0.2-1.0); TOTAL PROTEIN, SERUM 8.3 g/dL (6.0-8.3)
[2019-06-29 15:39] LABS: INR 1.05 (0.85-1.15); PARTIAL THROMBOPLASTIN TIME 24.1 SEC (26.3-35.5); PROTHROMBIN TIME 10.8 SEC (9.6-11.6)
[2019-06-29] MEDS ORDERED: ASPIRIN 325 MG TABLET ONE (16:01)
[2019-06-29] MEDS ORDERED: LEVOFLOXACIN 500 MG/D5W 100 ML 100 ML ONE (16:01)
[2019-06-29] MEDS ORDERED: NITROGLYCERIN 1GM/1 INCH PACKET TD ONE (16:01)
[2019-06-29] MEDS ORDERED: CEFTRIAXONE SODIUM 1 GM ONE (16:01)
[2019-06-29] MEDS ORDERED: SODIUM CHLORIDE 0.9% 250 ML IV ONE (16:02)
[2019-06-29 16:28] LABS: APPEARANCE,URINE CLEAR (CLEAR); BILIRUBIN,URINE NEGATIVE (NEGATIVE); GLUCOSE, URINE (UA) NEGATIVE (NEGATIVE); KETONES,URINE 15 mg/dL (NEGATIVE); LEUKOCYTE ESTERASE ,URINE NEGATIVE (NEGATIVE); NITRATE,URINE NEGATIVE (NEGATIVE); OCCULT BLOOD,URINE NEGATIVE (NEGATIVE); PH,URINE 7.5 (5.0-8.0); PROTEIN,URINE NEGATIVE (NEGATIVE); UROBILINOGEN,URINE 0.2 mg/dL (0.2-1.0)
[2019-06-29 16:37] LABS: COLOR,URINE STRAW (YELLOW)
[2019-06-29] MEDS: FUROSEMIDE 10 MG/ML 2ML VIAL IVP SCH (17:35)
[2019-06-29] MEDS ORDERED: ACETAMINOPHEN 325 MG TAB PO PRN (17:45)
--- NOTE | 2019-06-29 20:50 | NUR ---
ADMISSION NOTE: RECEIVED TO FLOOR FROM ER VIA STRETCHER. AOX2. FULLY AWAKE AND RESPONSIVE. COMPLAINTS OF SOB WITH O2 SAT AT 90 , PT THEN ATTACHED TO O2 AT 2LPM WITH O2SAT INCREASED TO 96%. VS CHECKED AND RECORDED. ORIENTED TO ROOM AND USE OF CALL LIGHT. VERBALIZED UNDERSTANDING. 2100 - ASSESSMENT DONE ( SEE CPOE FLOW CHART FOR FULL ASSESSEMENT). KEPT MONITORED FOR ANY CHANGES IN CONDITION.
[2019-06-29 20:55] VITALS: BP 116/72
[2019-06-29 21:12] LABS: TROPONIN I 0.19 ng/mL (0.00-0.06)
--- NOTE | 2019-06-29 21:30 | NUR ---
2129 - TELE STAFF CALLED THAT PT WAS RUNNING AFIB 150's 2134 - STILL RUNNING ON AFIB UP TO 160 PT. ASYMPTOMATIC. CONTINUOUSLY ATTACHED TO O2 AT 2LPM VIA NC. NO APPARENT DISTRESS NOTED. STAYS CALM AND VERY RESPONSIVE. TRYING TO CONTACT ON-CALL MD AT THIS TIME.
--- NOTE | 2019-06-29 21:43 | NUR ---
AFIB 150 - 160 REFERRED TO ON-CALL MR. MAGANA WITH AN ORDER TO TRANSFER PT TO PCCU AND ADMINISTER CARDIZEM DRIP. REPORTED PT'S POTASSIUM (3.4) AND SODIUM ( 132) WELL TROPONIN AND BNP RESULT WITH A REPLY TO JUST TRANSFER PT TO PCCU. ROTARY ENGRAVER NOTIFIED.
--- NOTE | 2019-06-29 22:07 | NUR ---
REPORT RECEIVED FROM KIM RYAN. PT BEING TRANSFERRED FROM MED SURG TO PCCU DUE TO AFIB 160'S.
[2019-06-29] MEDS ORDERED: DILTIAZEM HCL 5 MG/ML 5 ML VIAL IVP PRN (22:30)
[2019-06-29] MEDS ORDERED: LIDOCAINE HCL-MPF 1% 2ML VIAL IV PRN (22:30)
[2019-06-29] MEDS ORDERED: SODIUM CHLORIDE 0.9% 1000ML 1,000 ML IV SCH (22:30)
[2019-06-29] MEDS ORDERED: POTASSIUM CHLORIDE 20MEQ/100ML 100 ML IV PRN (22:30)
[2019-06-29] MEDS ORDERED: DILTIAZEM HCL 125 MG/25 ML 125 MG in SODIUM CHLORIDE 0.9% 100 ML IV PRN (22:30)
--- NOTE | 2019-06-29 22:30 | NUR ---
[facility]ED [facility] (202)
--- NOTE | 2019-06-29 22:30 | NUR ---
SPOKE TO [facility] ONCALL FOR BENCHMARK TEAM. VERIFIED ORDER FOR CARDIZEM. NEW ORDER FOR NS AT 75ML. IF DOES NOT HAVE FLUID OVERLOAD TO INCREASE TO 100ML/HR. CARDIZEM DRIP PER PROTOCOL. POTASSIUM PER PROTOCOL. PT STABLE AT THIS TIME. STATES NO PAIN. MINIMAL SOB. PLACED ON NASAL CANNULA AT 2LPM.
[2019-06-29] MEDS ORDERED: SODIUM CHLORIDE 0.9% 10 ML VIAL ONE (22:41)
[2019-06-29] MEDS ORDERED: POTASSIUM CHLORIDE 20MEQ/100ML 100 ML IV ONE (22:41)
[2019-06-29] MEDS ORDERED: SODIUM CHLORIDE 0.9% 1000ML 1,000 ML IV ONE (22:42)
[2019-06-29] MEDS ORDERED: DILTIAZEM 125MG+100 ML NS 125 ML IV PRN (22:45)
[2019-06-29] MEDS: DILTIAZEM HCL 5 MG/ML 10 ML VIAL IV ONE ×2 (22:49→23:29)
[2019-06-29 23:21] VITALS: BP 115/74
[2019-06-30] MEDS ORDERED: BACL5TAB PO (02:07)
--- NOTE | 2019-06-30 02:31 | NUR ---
PT CURRENTLY AFIB 90S. EKG SHOWS AFIB
[2019-06-30 02:40] LABS: TROPONIN I 0.15 ng/mL (0.00-0.06)
[2019-06-30 03:42] VITALS: BP 110/67
[2019-06-30 07:16] VITALS: BP 123/85
--- NOTE | 2019-06-30 07:20 | NUR ---
ASSESSMENT PT IS AWAKE AND ALERT, RESTING IN BED. DENIES CP DENIES SOB DENIES NV. NO VISIBLE SIGNS OF DISTRESS NOTED. BREATHING PATTERN IS EVEN AND UNLABORED. CARDIZEM AT 5CC/HR HEART RATE VIA TELE AFIB 79. CALL LIGHT WITHIN REACH.
[2019-06-30] MEDS: ASPIRIN 81MG TAB.CHEW PO SCH (07:40)
[2019-06-30] MEDS: FAMOTIDINE 20MG TAB 20 MG TAB PO SCH (07:40)
[2019-06-30] MEDS: FUROSEMIDE 10 MG/ML 2ML VIAL IVP SCH (07:41)
--- NOTE | 2019-06-30 11:00 | NUR ---
Bridget METCALF NP ROUNDED SAW PATIENT ORDERS RECEIVED.
[2019-06-30] MEDS: PROPAFENONE HCL 150 MG TABLET PO SCH ×2 (11:12→18:22)
[2019-06-30 11:24] VITALS: BP 93/52
--- NOTE | 2019-06-30 13:48 | NUR ---
DC PLAN PATIENT LIVES AT HOME WITH SPOUSE AND GRANDSON, HAS WALKER CANE AND WHEELCHAIR. PATIENT STATES SHE IS INDEPENDENT BUT HAS HAD RECENT FREQUENT FALLS AT HOME. RECOMMENDING SNF REFERRAL. ANNA SIGNED AND REFERRAL FAXED TO [facility]. FACILITY ELECTRICAL ENGINEERING TEACHER VISITED WITH PATIENT, PENDING AUTHORIZATION. Addendum: 06/30/19 at 1352 by SHELBY ESCAMILLA Amended: Links added.
--- NOTE | 2019-06-30 14:35 | NUR ---
ASSISTED TO BED TOLERATED WELL
[2019-06-30] MEDS: LEVOFLOXACIN 500 MG/D5W 100 ML 100 ML IV SCH (15:06)
[2019-06-30 15:09] VITALS: BP 108/66
--- NOTE | 2019-06-30 15:20 | NUR ---
[facility] consult Patient assessed as ordered. Patient with multiple bruises on extremities related to fall at home. Skin tear noted to left forearm. Patient also has blanchable redness noted to sacral area. Discussed need to turn/reposition q 2 hrs/prn to prevent pressure ulcer. Patient verbalized understanding. [facility] recommendations submitted and report given to patient's nurse, Gonzalez RYAN. Addendum: 06/30/19 at 1523 by CORAZON WAKEFIELD RN/ Amended: Links added.
[2019-06-30 19:54] VITALS: BP 148/94
[2019-06-30] MEDS: FLUDROCORTISONE ACETATE 0.1 MG TABLET PO SCH (21:05)
[2019-06-30] MEDS: APIXABAN 2.5 MG TABLET PO SCH (21:05)
[2019-06-30] MEDS: METOPROLOL TARTRATE 25 MG TAB PO SCH (21:05)
[2019-06-30] MEDS: BACLOFEN 10 MG TABLET PO SCH (21:05)
[2019-06-30] MEDS: SODIUM CHLORIDE 1,000 MG TAB PO SCH (21:05)
--- NOTE | 2019-06-30 22:00 | NUR ---
PT AA02-3. AT TIMES MINIMALLY CONFUSED. EASILY REORIENTED. PT ABLE TO TAKE MEDICATIONS DIRECTED. GBW. AFIB 120'S. ON RYTHMOL. PT WAS TAKEN OFF CARDIZEM DRIP PER BENCHMARK TEAM.
[2019-06-30 23:35] VITALS: BP 147/89
[2019-07-01] MEDS: PROPAFENONE HCL 150 MG TABLET PO SCH ×3 (03:10→18:26)
[2019-07-01 03:31] VITALS: BP 148/88
[2019-07-01 03:40] LABS: HEMATOCRIT 30.2 % (36-48); MEAN CORPUSCULAR HGB CONC 35.1 g/dL (32.0-36.0); MEAN CORPUSCULAR VOLUME 99.9 fL (79-99); PLATELET COUNT (AUTO) 177 K/uL (130-400); RED BLOOD CELL COUNT(AUTO) 3.02 MIL/uL (4.00-5.50); RED CELL DISTRIBUTION WIDTH 15.4 % (11.0-15.5); WHITE BLOOD COUNT (AUTO) 4.5 K/uL (4.8-10.8)
[2019-07-01 03:54] LABS: LYMPHOCYTES % (MANUAL) 16 % (22-44); MAN.DIFF COMMENT-IMPRESSION MANUAL DIFFERENTIAL; MONOCYTES % (MANUAL) 16 % (2-9); PLATELET MORPHOLOGY COMMENT ADEQUATE; SEGMENTED NEUTROPHILS % 68 % (40-70)
[2019-07-01] MEDS ORDERED: POTASSIUM CHLORIDE 20 MEQ ERTAB PO ONE (03:57)
[2019-07-01] MEDS ORDERED: POTASSIUM CHLORIDE 10% ELIXIR 20 MEQ/15 ML UDCUP PO PRN (04:00)
--- NOTE | 2019-07-01 04:00 | NUR ---
POTASSIUM GIVEN PRN. 20 MEQ TABLET GIVEN PO.
[2019-07-01] MEDS: POTASSIUM CHLORIDE 20 MEQ ERTAB PO PRN ×2 (06:23→16:59)
[2019-07-01 08:05] VITALS: BP 141/93
[2019-07-01] MEDS: CALCIUM 600 + VITAMIN D 400 TABLET PO SCH (09:02)
[2019-07-01] MEDS: CYANOCOBALAMIN (VITAMIN B-12) 1,000 MCG TABLET PO SCH (09:02)
[2019-07-01] MEDS: FAMOTIDINE 20MG TAB 20 MG TAB PO SCH (09:02)
[2019-07-01] MEDS: POTASSIUM CHLORIDE 10 MEQ/TAB.SA PO SCH (09:02)
[2019-07-01] MEDS: FOLIC ACID 1 MG TABLET PO SCH (09:02)
[2019-07-01] MEDS: SODIUM CHLORIDE 1,000 MG TAB PO SCH ×4 (09:02→20:14)
[2019-07-01] MEDS: APIXABAN 2.5 MG TABLET PO SCH ×2 (09:02→20:09)
[2019-07-01] MEDS: FLUDROCORTISONE ACETATE 0.1 MG TABLET PO SCH ×2 (09:02→20:09)
[2019-07-01] MEDS: METOPROLOL TARTRATE 25 MG TAB PO SCH ×2 (09:02→20:10)
[2019-07-01] MEDS: FUROSEMIDE 10 MG/ML 2ML VIAL IVP SCH (09:12)
[2019-07-01] MEDS: ASPIRIN 81MG TAB.CHEW PO SCH (09:13)
[2019-07-01] MEDS: MAGNESIUM 2GM PREMIX 50ML 50 ML IV PRN (09:14)
[2019-07-01 11:53] VITALS: BP 121/74
--- NOTE | 2019-07-01 13:27 | NUR ---
DIEGO EPSTEIN EMAILED SAID PATIENT ACCEPTED AT 923PM. LET NURSE KNOW OF ACCEPTANCE THIS MORNING. PATIENT WILL GO VIA FACILITY [facility]. Addendum: 07/01/19 at 1329 by MIREILLE VARMA RN CM Amended: Links added.
[2019-07-01 16:03] VITALS: BP 143/89
[2019-07-01] MEDS: LEVOFLOXACIN 500 MG/D5W 100 ML 100 ML IV SCH (16:56)
--- NOTE | 2019-07-01 19:27 | NUR ---
ASSESSMENT PATIENT IS RESTING IN BED. ALERT AND ORIENTED X3 WITH OCCASIONAL CONFUSION. FOLLOWS SIMPLE COMMANDS. VOICES NO PAIN AT THIS TIME. NO SIGNS OF DISTRESS. NO SHORTNESS OF BREATH. CALL LIGHT IS WITHIN REACH. BEDSIDE TABLE WITHIN REACH. BED ALARM IS ON FOR HIGH RISK FOR FALLS. REINFORCED PATIENT TO CALL FOR ANY NEEDS. DOOR IS OPEN AND PATIENTS ROOM IS BY NURSES STATION. NO QUESTIONS, CONCERNS, OR NEEDS AT THIS TIME.
[2019-07-01 19:30] VITALS: BP 135/84
[2019-07-01] MEDS: BACLOFEN 10 MG TABLET PO SCH (20:09)
[2019-07-01] MEDS: ACETAMINOPHEN 325 MG TAB PO PRN (20:11)
[2019-07-01 23:42] VITALS: BP 124/84
[2019-07-02 03:35] VITALS: BP 152/115
[2019-07-02 03:35] LABS: HEMATOCRIT 28.6 % (36-48); MEAN CORPUSCULAR HEMOGLOBIN 34.5 pg (27.0-33.0); MEAN CORPUSCULAR HGB CONC 34.3 g/dL (32.0-36.0); MEAN CORPUSCULAR VOLUME 100.7 fL (79-99); PLATELET COUNT (AUTO) 167 K/uL (130-400); RED BLOOD CELL COUNT(AUTO) 2.84 MIL/uL (4.00-5.50); WHITE BLOOD COUNT (AUTO) 3.9 K/uL (4.8-10.8)
[2019-07-02 03:41] LABS: CREATININE 0.9 mg/dL (0.5-1.5); POTASSIUM 3.9 mmol/L (3.5-5.1)
[2019-07-02] MEDS: PROPAFENONE HCL 150 MG TABLET PO SCH ×3 (04:42→19:28)
[2019-07-02 07:49] VITALS: BP 154/98
[2019-07-02] MEDS: FLUDROCORTISONE ACETATE 0.1 MG TABLET PO SCH ×2 (10:02→20:37)
[2019-07-02] MEDS: APIXABAN 2.5 MG TABLET PO SCH ×2 (10:02→20:37)
[2019-07-02] MEDS: ASPIRIN 81MG TAB.CHEW PO SCH (10:02)
[2019-07-02] MEDS: CYANOCOBALAMIN (VITAMIN B-12) 1,000 MCG TABLET PO SCH (10:03)
[2019-07-02] MEDS: SODIUM CHLORIDE 1,000 MG TAB PO SCH ×3 (10:03→20:37)
[2019-07-02] MEDS: FOLIC ACID 1 MG TABLET PO SCH (10:03)
[2019-07-02] MEDS: CALCIUM 600 + VITAMIN D 400 TABLET PO SCH (10:03)
[2019-07-02] MEDS: FAMOTIDINE 20MG TAB 20 MG TAB PO SCH (10:04)
[2019-07-02] MEDS: METOPROLOL TARTRATE 25 MG TAB PO SCH ×2 (10:04→20:37)
[2019-07-02] MEDS: POTASSIUM CHLORIDE 10 MEQ/TAB.SA PO SCH (10:04)
[2019-07-02] MEDS: FUROSEMIDE 10 MG/ML 2ML VIAL IVP SCH (10:05)
[2019-07-02] MEDS ORDERED: VANCOMYCIN PROTOCOL PER PHARMACY IV SCH (11:00)
--- NOTE | 2019-07-02 11:14 | NUR ---
BLOOD CULTURE RESULTS POSITIVE BLOOD CULTURES MRSA GRAM POSITIVE COCCI IN CLUSTERS. REPORTED TO SONIDO METCALF NP. NO NEW ORDERS RECEIVED.
[2019-07-02] MEDS ORDERED: VANCOMYCIN 1.25 GM in SODIUM CHLORIDE 0.9% 250 ML IV ONE (11:15)
[2019-07-02 11:31] LABS: TROPONIN I 0.07 ng/mL (0.00-0.06)
[2019-07-02 12:18] VITALS: BP 114/77
[2019-07-02 15:28] VITALS: BP 140/72
--- NOTE | 2019-07-02 15:41 | NUR ---
DIEGO RUELAS SPOKE TO ANGEL AT [facility]. GAVE HER AN UPDATE ON WHY PATIENT STILL HERE. PATIENT HAD 1 OF 2 BLOOD CULTURES POSITIVE GOT FINAL SENSITIVITY 07/02 AT 7. PATIENT HAS ALSO BEEN GETTING NA TABLETS NA 132 TODAY. NEW CONSULT FOR DR. CERON TODAY AT 1430. Addendum: 07/02/19 at 1545 by MIREILLE VARMA RN CM Amended: Links added.
[2019-07-02] MEDS: LEVOFLOXACIN 500 MG/D5W 100 ML 100 ML IV SCH (16:56)
[2019-07-02 19:37] VITALS: BP 150/102
[2019-07-02] MEDS: HYDRALAZINE HCL 20 MG/ML VIAL IV PRN (20:37)
[2019-07-02] MEDS: BACLOFEN 10 MG TABLET PO SCH (20:37)
[2019-07-02] MEDS ORDERED: VANCOMYCIN 500MG+NS 100ML 100 ML IV SCH (23:00)
[2019-07-02 23:33] VITALS: BP 143/89
[2019-07-03] VITALS (7 sets, daily range): BP systolic 112–180; BP diastolic 55–114
[2019-07-03 04:28] LABS: HEMATOCRIT 28.3 % (36-48); MEAN CORPUSCULAR HEMOGLOBIN 34.6 pg (27.0-33.0); MEAN CORPUSCULAR HGB CONC 34.7 g/dL (32.0-36.0); MEAN CORPUSCULAR VOLUME 99.6 fL (79-99); PLATELET COUNT (AUTO) 154 K/uL (130-400); RED BLOOD CELL COUNT(AUTO) 2.84 MIL/uL (4.00-5.50); RED CELL DISTRIBUTION WIDTH 15.7 % (11.0-15.5); WHITE BLOOD COUNT (AUTO) 4.4 K/uL (4.8-10.8)
[2019-07-03 04:30] LABS: CREATININE 0.7 mg/dL (0.5-1.5); POTASSIUM 3.5 mmol/L (3.5-5.1)
[2019-07-03] MEDS: PROPAFENONE HCL 150 MG TABLET PO SCH ×3 (04:39→19:31)
[2019-07-03 05:32] LABS: BASOPHILS % (MANUAL) 1 % (0-2); EOSINOPHILS % (MANUAL) 1 % (1-6); LYMPHOCYTES % (MANUAL) 23 % (22-44); MAN.DIFF COMMENT-IMPRESSION MANUAL DIFFERENTIAL; MONOCYTES % (MANUAL) 5 % (2-9); PLATELET MORPHOLOGY COMMENT ADEQUATE; REACTIVE LYMPHOCYTES 1 % (0-0); SEGMENTED NEUTROPHILS % 69 % (40-70)
[2019-07-03] MEDS: FOLIC ACID 1 MG TABLET PO SCH (08:54)
[2019-07-03] MEDS: CYANOCOBALAMIN (VITAMIN B-12) 1,000 MCG TABLET PO SCH (08:54)
[2019-07-03] MEDS: CALCIUM 600 + VITAMIN D 400 TABLET PO SCH (08:54)
[2019-07-03] MEDS: SODIUM CHLORIDE 1,000 MG TAB PO SCH ×3 (08:55→20:09)
[2019-07-03] MEDS: ASPIRIN 81MG TAB.CHEW PO SCH (08:55)
[2019-07-03] MEDS: FLUDROCORTISONE ACETATE 0.1 MG TABLET PO SCH ×2 (08:55→20:08)
[2019-07-03] MEDS: APIXABAN 2.5 MG TABLET PO SCH ×2 (08:55→20:09)
[2019-07-03] MEDS: FAMOTIDINE 20MG TAB 20 MG TAB PO SCH (08:55)
--- NOTE | 2019-07-03 09:55 | NUR ---
PT NOTE: PATIENT REQUIRES MIN ASSISTX2 FOR SAFE TRANSFERS OOB SECONDARY TO WEAKNESS. PATIENT AMBULATED 100FT MIN ASSISTX2 /C 1 STANDING REST BREAK IN-BETWEEN SECONDARY TO FATIGUE. PATIENT WILL BENEFIT FROM CONTINUED PT TX TO PROMOTE SAFER AMBULATION AND REDUCED RISK OF FALLS IN CONJUNCTION /C IMPROVED MUSCLE STRENGTH AND ENDURANCE. Addendum: 07/03/19 at 1121 by AISLINN HEALY PT Amended: Links added.
[2019-07-03] MEDS: POTASSIUM CHLORIDE 10 MEQ/TAB.SA PO SCH (10:43)
[2019-07-03] MEDS: FUROSEMIDE 10 MG/ML 2ML VIAL IVP SCH (10:43)
[2019-07-03] MEDS: METOPROLOL TARTRATE 25 MG TAB PO SCH ×2 (10:43→20:08)
[2019-07-03] MEDS ORDERED: VANCOMYCIN 750MG + NS 250 ML IV SCH ×2 (12:08)
[2019-07-03] MEDS ORDERED: COMPOUND IV REFRIGERATED 1 EACH IVSOLN MISC PRN (12:15)
[2019-07-03] MEDS ORDERED: SODIUM CHLORIDE 0.9% 250 ML IV ONE (13:10)
[2019-07-03] MEDS: HYDRALAZINE HCL 20 MG/ML VIAL IV PRN (15:29)
[2019-07-03] MEDS: LEVOFLOXACIN 500 MG/D5W 100 ML 100 ML IV SCH (17:24)
[2019-07-03] MEDS: BACLOFEN 10 MG TABLET PO SCH (20:08)
[2019-07-04] MEDS: VANCOMYCIN 750MG + NS 250 ML IV SCH ×4 (00:06→09:54)
[2019-07-04] MEDS ORDERED: SODIUM CHLORIDE 0.9% 250 ML IV ONE (01:53)
[2019-07-04] MEDS: PROPAFENONE HCL 150 MG TABLET PO SCH ×3 (03:54→17:51)
[2019-07-04 04:21] LABS: CREATININE 0.8 mg/dL (0.5-1.5); POTASSIUM 3.2 mmol/L (3.5-5.1)
[2019-07-04 04:22] LABS: HEMATOCRIT 29.5 % (36-48); MEAN CORPUSCULAR HEMOGLOBIN 34.8 pg (27.0-33.0); MEAN CORPUSCULAR HGB CONC 34.4 g/dL (32.0-36.0); MEAN CORPUSCULAR VOLUME 101.1 fL (79-99); PLATELET COUNT (AUTO) 142 K/uL (130-400); RED BLOOD CELL COUNT(AUTO) 2.92 MIL/uL (4.00-5.50); WHITE BLOOD COUNT (AUTO) 4.5 K/uL (4.8-10.8)
[2019-07-04 04:42] VITALS: BP 167/88
[2019-07-04 05:01] LABS: LYMPHOCYTES % (MANUAL) 20 % (22-44); MAN.DIFF COMMENT-IMPRESSION MANUAL DIFFERENTIAL; MONOCYTES % (MANUAL) 8 % (2-9); PLATELET MORPHOLOGY COMMENT ADEQUATE; SEGMENTED NEUTROPHILS % 72 % (40-70)
[2019-07-04 07:40] VITALS: BP 164/113
[2019-07-04] MEDS: FUROSEMIDE 10 MG/ML 2ML VIAL IVP SCH (08:31)
[2019-07-04] MEDS: HYDRALAZINE HCL 20 MG/ML VIAL IV PRN (08:32)
[2019-07-04] MEDS: ASPIRIN 81MG TAB.CHEW PO SCH ×2 (08:39→12:31)
[2019-07-04] MEDS: CALCIUM 600 + VITAMIN D 400 TABLET PO SCH (08:39)
[2019-07-04] MEDS: CYANOCOBALAMIN (VITAMIN B-12) 1,000 MCG TABLET PO SCH (08:39)
[2019-07-04] MEDS: APIXABAN 2.5 MG TABLET PO SCH ×3 (08:39→20:32)
[2019-07-04] MEDS: POTASSIUM CHLORIDE 10 MEQ/TAB.SA PO SCH ×2 (08:39→12:30)
[2019-07-04] MEDS: SODIUM CHLORIDE 1,000 MG TAB PO SCH ×3 (08:39→20:36)
[2019-07-04] MEDS: METOPROLOL TARTRATE 25 MG TAB PO SCH ×3 (08:40→20:32)
[2019-07-04] MEDS: FLUDROCORTISONE ACETATE 0.1 MG TABLET PO SCH ×3 (08:40→20:32)
[2019-07-04] MEDS: FAMOTIDINE 20MG TAB 20 MG TAB PO SCH ×2 (08:40→12:30)
[2019-07-04] MEDS: FOLIC ACID 1 MG TABLET PO SCH (08:40)
[2019-07-04 09:21] VITALS: BP 133/96
[2019-07-04 12:07] VITALS: BP 150/64
[2019-07-04 15:23] VITALS: BP 133/80
[2019-07-04] MEDS: LEVOFLOXACIN 500 MG/D5W 100 ML 100 ML IV SCH (15:44)
--- NOTE | 2019-07-04 18:31 | NUR ---
NOTIFIED DR. CERON RE:NEW CONSULT. VERBALIZED UNDERSTANDING. NO NEW ORDERS RECEIVED.
[2019-07-04 19:30] VITALS: BP 156/86
[2019-07-04] MEDS: BACLOFEN 10 MG TABLET PO SCH (20:32)
[2019-07-05] VITALS (9 sets, daily range): BP systolic 119–164; BP diastolic 49–119
[2019-07-05] MEDS: PROPAFENONE HCL 150 MG TABLET PO SCH ×3 (03:17→18:22)
[2019-07-05] MEDS: VANCOMYCIN 750MG + NS 250 ML IV SCH ×6 (03:17→21:14)
[2019-07-05 04:34] LABS: HEMATOCRIT 27.2 % (36-48); MEAN CORPUSCULAR HEMOGLOBIN 35.4 pg (27.0-33.0); MEAN CORPUSCULAR HGB CONC 35.6 g/dL (32.0-36.0); MEAN CORPUSCULAR VOLUME 99.4 fL (79-99); PLATELET COUNT (AUTO) 138 K/uL (130-400); RED BLOOD CELL COUNT(AUTO) 2.73 MIL/uL (4.00-5.50); RED CELL DISTRIBUTION WIDTH 15.7 % (11.0-15.5); WHITE BLOOD COUNT (AUTO) 4.6 K/uL (4.8-10.8)
[2019-07-05 04:54] LABS: CREATININE 0.9 mg/dL (0.5-1.5); POTASSIUM 3.3 mmol/L (3.5-5.1)
[2019-07-05 05:02] LABS: BAND NEUTROPHILS % (MANUAL) 4 % (0-2); LYMPHOCYTES % (MANUAL) 16 % (22-44); MONOCYTES % (MANUAL) 12 % (2-9); SEGMENTED NEUTROPHILS % 68 % (40-70)
[2019-07-05 05:03] LABS: MAN.DIFF COMMENT-IMPRESSION MANUAL DIFFERENTIAL; PLATELET MORPHOLOGY COMMENT ADEQUATE
[2019-07-05] MEDS: POTASSIUM CHLORIDE 20 MEQ ERTAB PO PRN (06:25)
[2019-07-05] MEDS: CYANOCOBALAMIN (VITAMIN B-12) 1,000 MCG TABLET PO SCH (10:25)
[2019-07-05] MEDS: FUROSEMIDE 10 MG/ML 2ML VIAL IVP SCH (10:25)
[2019-07-05] MEDS: POTASSIUM CHLORIDE 10 MEQ/TAB.SA PO SCH (10:25)
[2019-07-05] MEDS: FOLIC ACID 1 MG TABLET PO SCH (10:25)
[2019-07-05] MEDS: ASPIRIN 81MG TAB.CHEW PO SCH (10:25)
[2019-07-05] MEDS: APIXABAN 2.5 MG TABLET PO SCH ×2 (10:26→21:07)
[2019-07-05] MEDS: FLUDROCORTISONE ACETATE 0.1 MG TABLET PO SCH ×2 (10:26→21:08)
[2019-07-05] MEDS: METOPROLOL TARTRATE 25 MG TAB PO SCH ×2 (10:26→21:08)
[2019-07-05] MEDS: CALCIUM 600 + VITAMIN D 400 TABLET PO SCH (10:26)
[2019-07-05] MEDS: FAMOTIDINE 20MG TAB 20 MG TAB PO SCH (10:26)
[2019-07-05] MEDS: SODIUM CHLORIDE 1,000 MG TAB PO SCH ×3 (10:26→21:07)
[2019-07-05] MEDS ORDERED: METOPROLOL TARTRATE 25 MG TAB PO SCH (14:30)
[2019-07-05] MEDS: METOPROLOL TARTRATE 1 MG/ML 5ML VIAL IV PRN ×3 (14:36→15:54)
[2019-07-05] MEDS ORDERED: DILTIAZEM HCL 125 MG/25 ML 125 MG in SODIUM CHLORIDE 0.9% 100 ML IV PRN (16:15)
[2019-07-05] MEDS ORDERED: DILTIAZEM HCL 5 MG/ML 5 ML VIAL IVP PRN (16:15)
[2019-07-05] MEDS: HYDRALAZINE HCL 20 MG/ML VIAL IV PRN (16:27)
[2019-07-05] MEDS ORDERED: DILTIAZEM HCL 5 MG/ML 10 ML VIAL IV ONE (16:53)
[2019-07-05] MEDS: BACLOFEN 10 MG TABLET PO SCH (21:13)
[2019-07-06] VITALS (9 sets, daily range): BP systolic 130–176; BP diastolic 72–119
[2019-07-06] MEDS: PROPAFENONE HCL 150 MG TABLET PO SCH ×3 (02:09→19:15)
[2019-07-06 03:50] LABS: HEMATOCRIT 27.3 % (36-48); MEAN CORPUSCULAR HEMOGLOBIN 35.1 pg (27.0-33.0); MEAN CORPUSCULAR HGB CONC 34.5 g/dL (32.0-36.0); MEAN CORPUSCULAR VOLUME 101.8 fL (79-99); NUCLEATED RED BLOOD CELLS 0.1 % (0.0-0.19); PLATELET COUNT (AUTO) 124 K/uL (130-400); RED BLOOD CELL COUNT(AUTO) 2.69 MIL/uL (4.00-5.50); RED CELL DISTRIBUTION WIDTH 16.7 % (11.0-15.5); WHITE BLOOD COUNT (AUTO) 4.8 K/uL (4.8-10.8)
[2019-07-06 04:00] LABS: LYMPHOCYTES % (MANUAL) 12 % (22-44); MAN.DIFF COMMENT-IMPRESSION MANUAL DIFFERENTIAL; MONOCYTES % (MANUAL) 12 % (2-9); PLATELET MORPHOLOGY COMMENT ADEQUATE; SEGMENTED NEUTROPHILS % 76 % (40-70)
[2019-07-06 04:10] LABS: CREATININE 0.9 mg/dL (0.5-1.5); POTASSIUM 3.9 mmol/L (3.5-5.1); THYROID STIMULATING HORMONE 2.65 uIU/mL (0.36-3.74)
[2019-07-06] MEDS: FUROSEMIDE 10 MG/ML 2ML VIAL IVP SCH ×4 (08:02→20:07)
[2019-07-06] MEDS: VANCOMYCIN 750MG + NS 250 ML IV SCH ×4 (08:02→20:12)
[2019-07-06] MEDS: POTASSIUM CHLORIDE 10 MEQ/TAB.SA PO SCH (08:03)
[2019-07-06] MEDS: CYANOCOBALAMIN (VITAMIN B-12) 1,000 MCG TABLET PO SCH (08:03)
[2019-07-06] MEDS: FOLIC ACID 1 MG TABLET PO SCH (08:03)
[2019-07-06] MEDS: METOPROLOL TARTRATE 25 MG TAB PO SCH (08:04)
[2019-07-06] MEDS: CALCIUM 600 + VITAMIN D 400 TABLET PO SCH (08:04)
[2019-07-06] MEDS: FLUDROCORTISONE ACETATE 0.1 MG TABLET PO SCH ×2 (08:04→20:07)
[2019-07-06] MEDS: ASPIRIN 81MG TAB.CHEW PO SCH (08:05)
[2019-07-06] MEDS: APIXABAN 2.5 MG TABLET PO SCH ×2 (08:05→20:10)
[2019-07-06] MEDS: FAMOTIDINE 20MG TAB 20 MG TAB PO SCH (08:05)
[2019-07-06] MEDS: SODIUM CHLORIDE 1,000 MG TAB PO SCH ×3 (09:00→20:07)
--- NOTE | 2019-07-06 10:52 | NUR ---
DC PLAN SPOKE TO TETE PATIENT STILL HAS AUTH FOR TODAY. RD WILLAMS NOTIFIED SAID WILL CHECK WITH DR. HODGE FOR DC. Addendum: 07/06/19 at 1136 by MIREILLE VARMA RN CM Amended: Links added.
[2019-07-06] MEDS: HYDRALAZINE HCL 20 MG/ML VIAL IV PRN (11:40)
[2019-07-06] MEDS ORDERED: DILT30TA38 PO (12:18)
[2019-07-06] MEDS ORDERED: DILTIAZEM HCL 60 MG TABLET ONE (12:38)
[2019-07-06] MEDS ORDERED: METOPROLOL TARTRATE 50 MG TAB PO SCH (16:45)
--- NOTE | 2019-07-06 16:45 | NUR ---
ISRA DISCONTINUED PER DR ESPINOZA RECOMMENDATION, DR JONES UPDATED, ORDER RECEIVED TO DC ISRA.
--- NOTE | 2019-07-06 17:13 | NUR ---
RD NOTIFICATION Dx: Sepsis. Hx: Afib, HTN, Hyperlipidemia, Chronic anticoagulation, MRSA. Diet: Heart Healthy. Po intake 0% and has poor appetite. Pt stated she is depressed and has no appetite. Pt is sad and says food is too bland; has no flavor. She has not has a BM since admission and would like a stool softener; she has taken some in the past. Pt stated she will not drink Ensure/ Glucerna. No edema, Left cheek skin tear, forearm skin tear, buttocks skin tear noted. RD recommends d/c Heart healthy diet. Change to Regular diet, Offer Promod 30mls BID. Recommend a stool softener. Consult project geophysicist regarding her depression. If pt continues with poor appetite, recommend an appetite stimulant. RD will continue to monitor and follow up as needed. Casandra Gaston MS, RDN Addendum: 07/06/19 at [address] Amended: Links added.
[2019-07-06] MEDS: IPRATROPIUM 0.5 MG/2.5 ML INH IH PRN ×2 (19:47→23:41)
[2019-07-06] MEDS: BACLOFEN 10 MG TABLET PO SCH (20:08)
[2019-07-06] MEDS: METOPROLOL TARTRATE 50 MG TAB PO SCH (20:10)
[2019-07-07] VITALS (9 sets, daily range): BP systolic 105–174; BP diastolic 67–119
[2019-07-07] MEDS: PROPAFENONE HCL 150 MG TABLET PO SCH (02:21)
[2019-07-07] MEDS: HYDRALAZINE HCL 20 MG/ML VIAL IV PRN ×2 (04:11→10:16)
[2019-07-07 04:53] LABS: BASOPHILS % (AUTO) 0.3 % (0.0-5.0); EOSINOPHILS % (AUTO) 0.1 % (0.0-8.0); HEMATOCRIT 28.4 % (36-48); LYMPHOCYTES % (AUTO) 19.1 % (21.0-51.0); MEAN CORPUSCULAR HEMOGLOBIN 35.1 pg (27.0-33.0); MEAN CORPUSCULAR VOLUME 100.2 fL (79-99); MONOCYTES % (AUTO) 10.5 % (3.0-13.0); NUCLEATED RED BLOOD CELLS 0.2 % (0.0-0.19); PLATELET COUNT (AUTO) 144 K/uL (130-400); RED BLOOD CELL COUNT(AUTO) 2.84 MIL/uL (4.00-5.50); RED CELL DISTRIBUTION WIDTH 16.6 % (11.0-15.5); WHITE BLOOD COUNT (AUTO) 4.8 K/uL (4.8-10.8)
[2019-07-07 05:10] LABS: CREATININE 0.8 mg/dL (0.5-1.5); MAGNESIUM 1.2 mg/dL (1.80-2.40)
[2019-07-07 05:12] LABS: POTASSIUM 2.2 mmol/L (3.5-5.1)
[2019-07-07] MEDS: MAGNESIUM 2GM PREMIX 50ML 50 ML IV PRN ×2 (06:09→08:48)
[2019-07-07] MEDS: IPRATROPIUM 0.5 MG/2.5 ML INH IH PRN ×2 (06:21→17:06)
[2019-07-07] MEDS: POTASSIUM CHLORIDE 20 MEQ ERTAB PO SCH ×4 (08:25→15:43)
[2019-07-07] MEDS ORDERED: ONDANSETRON HCL 4 MG/2 ML VIAL IVP PRN (08:45)
[2019-07-07] MEDS: VANCOMYCIN 750MG + NS 250 ML IV SCH ×2 (08:49)
[2019-07-07] MEDS: SODIUM CHLORIDE 1,000 MG TAB PO SCH ×3 (09:09→20:46)
[2019-07-07] MEDS: POTASSIUM CHLORIDE 10 MEQ/TAB.SA PO SCH (09:09)
[2019-07-07] MEDS: CALCIUM 600 + VITAMIN D 400 TABLET PO SCH (09:10)
[2019-07-07] MEDS: FLUDROCORTISONE ACETATE 0.1 MG TABLET PO SCH (09:10)
[2019-07-07] MEDS: CYANOCOBALAMIN (VITAMIN B-12) 1,000 MCG TABLET PO SCH (09:10)
[2019-07-07] MEDS: ASPIRIN 81MG TAB.CHEW PO SCH (09:10)
[2019-07-07] MEDS: FOLIC ACID 1 MG TABLET PO SCH (09:10)
[2019-07-07] MEDS: FAMOTIDINE 20MG TAB 20 MG TAB PO SCH (09:10)
[2019-07-07] MEDS: METOPROLOL TARTRATE 50 MG TAB PO SCH (09:10)
[2019-07-07] MEDS: APIXABAN 2.5 MG TABLET PO SCH ×2 (09:10→20:47)
[2019-07-07] MEDS ORDERED: MAGNESIUM 2GM PREMIX 50ML 50 ML IV PRN (11:00)
[2019-07-07] MEDS ORDERED: LIDOCAINE HCL 2% VISCOUS 15 ML UDCUP PO SCH (11:45)
[2019-07-07 12:33] LABS: MAGNESIUM 2.7 mg/dL (1.80-2.40)
[2019-07-07 12:43] LABS: POTASSIUM 2.9 mmol/L (3.5-5.1)
[2019-07-07] MEDS: VERAPAMIL HCL 80 MG TABLET PO SCH ×2 (13:08→20:47)
--- NOTE | 2019-07-07 16:21 | NUR ---
RD NOTIFICATION/ FOLLOW UP Dx: Sepsis. Diet: Regular/ Promod 30mls BID. LBM: 07/05. Pt is weak and refusing to eat. Pt with <25% PO intake and poor appetite for several weeks now, as per . stated her usual body weight is 136#. Pt has multiple skin tear, no edema noted. Her taste buds have changed and nothing seems to be appealing to her. Pt stated she will not drink any kind of oral supplementation such as Ensure/ Glucerna/ Promod. Patient continues with poor po intake and appetite. D/C Promod BID; refused by pt. RD recommends an appetite stimulant. If po intake does not improve consider alternate means of nutrition. RD Will continue to monitor and follow up. Casandra Gaston MS, RDN Addendum: 07/07/19 at [address] Amended: Links added.
[2019-07-07] MEDS: BACLOFEN 10 MG TABLET PO SCH (20:46)
[2019-07-07] MEDS: DRONEDARONE HYDROCHLORIDE 400 MG TABLET PO SCH (20:46)
[2019-07-08] VITALS (8 sets, daily range): BP systolic 116–170; BP diastolic 68–108
[2019-07-08] MEDS: VANCOMYCIN 750MG + NS 250 ML IV SCH ×6 (03:56→20:41)
[2019-07-08 06:11] LABS: BASOPHILS % (AUTO) 0.1 % (0.0-5.0); EOSINOPHILS % (AUTO) 0.1 % (0.0-8.0); HEMATOCRIT 31.5 % (36-48); LYMPHOCYTES % (AUTO) 19.6 % (21.0-51.0); MEAN CORPUSCULAR HEMOGLOBIN 33.4 pg (27.0-33.0); MEAN CORPUSCULAR HGB CONC 32.8 g/dL (32.0-36.0); MEAN CORPUSCULAR VOLUME 101.6 fL (79-99); NEUTROPHILS % (AUTO) 69.2 % (40.0-77.0); NUCLEATED RED BLOOD CELLS 0.1 % (0.0-0.19); PLATELET COUNT (AUTO) 158 K/uL (130-400)
[2019-07-08 06:22] LABS: CREATININE 0.8 mg/dL (0.5-1.5); MAGNESIUM 2.2 mg/dL (1.80-2.40); POTASSIUM 3.7 mmol/L (3.5-5.1)
[2019-07-08] MEDS ORDERED: IPRATROPIUM 0.5 MG/2.5 ML INH IH ONE (06:48)
[2019-07-08] MEDS ORDERED: DILTIAZEM HCL 60 MG TABLET PO SCH (08:00)
[2019-07-08] MEDS: DRONEDARONE HYDROCHLORIDE 400 MG TABLET PO SCH ×2 (08:39→20:46)
[2019-07-08] MEDS: FAMOTIDINE 20MG TAB 20 MG TAB PO SCH (08:39)
[2019-07-08] MEDS: FOLIC ACID 1 MG TABLET PO SCH (08:39)
[2019-07-08] MEDS: APIXABAN 2.5 MG TABLET PO SCH ×2 (08:39→20:43)
[2019-07-08] MEDS: CYANOCOBALAMIN (VITAMIN B-12) 1,000 MCG TABLET PO SCH (08:39)
[2019-07-08] MEDS: SODIUM CHLORIDE 1,000 MG TAB PO SCH ×3 (08:39→20:43)
[2019-07-08] MEDS: ASPIRIN 81MG TAB.CHEW PO SCH (08:39)
[2019-07-08] MEDS: POTASSIUM CHLORIDE 20 MEQ ERTAB PO SCH ×3 (08:40→17:29)
[2019-07-08] MEDS: CALCIUM 600 + VITAMIN D 400 TABLET PO SCH (08:42)
[2019-07-08] MEDS: FUROSEMIDE 10 MG/ML 2ML VIAL IVP SCH ×2 (08:43→09:00)
[2019-07-08] MEDS: POTASSIUM CHLORIDE 10 MEQ/TAB.SA PO SCH (09:00)
[2019-07-08] MEDS: VERAPAMIL HCL 80 MG TABLET PO SCH ×3 (09:35→20:42)
[2019-07-08] MEDS: IPRATROPIUM 0.5 MG/2.5 ML INH IH PRN (18:45)
[2019-07-08] MEDS: BACLOFEN 10 MG TABLET PO SCH (20:47)
[2019-07-09] VITALS (8 sets, daily range): BP systolic 137–160; BP diastolic 93–112
[2019-07-09 03:54] LABS: BASOPHILS % (AUTO) 0.3 % (0.0-5.0); EOSINOPHILS % (AUTO) 0.2 % (0.0-8.0); HEMATOCRIT 29.6 % (36-48); LYMPHOCYTES % (AUTO) 25.5 % (21.0-51.0); MEAN CORPUSCULAR HEMOGLOBIN 35.3 pg (27.0-33.0); MEAN CORPUSCULAR HGB CONC 34.2 g/dL (32.0-36.0); MEAN CORPUSCULAR VOLUME 103.1 fL (79-99); MONOCYTES % (AUTO) 11.5 % (3.0-13.0); NEUTROPHILS % (AUTO) 62.5 % (40.0-77.0); NUCLEATED RED BLOOD CELLS 0.2 % (0.0-0.19); PLATELET COUNT (AUTO) 134 K/uL (130-400); RED BLOOD CELL COUNT(AUTO) 2.87 MIL/uL (4.00-5.50); RED CELL DISTRIBUTION WIDTH 17.1 % (11.0-15.5); WHITE BLOOD COUNT (AUTO) 5.2 K/uL (4.8-10.8)
[2019-07-09 04:04] LABS: CREATININE 0.9 mg/dL (0.5-1.5)
[2019-07-09] MEDS: HYDRALAZINE HCL 20 MG/ML VIAL IV PRN ×2 (05:13→12:31)
--- NOTE | 2019-07-09 06:09 | NUR ---
Afib Patient Afib HR. 120-130's. Contacted cardiology [facility] new orders received. Will carry out. Patient stable, alert, no distress noted call light with in reach and patient near the nurses station.
[2019-07-09] MEDS ORDERED: DILTIAZEM HCL 5 MG/ML 10 ML VIAL IV SCH (06:15)
[2019-07-09] MEDS ORDERED: DILTIAZEM 125MG+100 ML NS 125 ML IV PRN (06:15)
[2019-07-09] MEDS: IPRATROPIUM 0.5 MG/2.5 ML INH IH PRN ×2 (07:07→18:28)
[2019-07-09] MEDS: FUROSEMIDE 10 MG/ML 2ML VIAL IVP SCH (08:25)
[2019-07-09] MEDS: DRONEDARONE HYDROCHLORIDE 400 MG TABLET PO SCH ×2 (08:25→21:44)
[2019-07-09] MEDS ORDERED: PROPOFOL 10 MG/ML 20ML VIAL IV ONE (08:58)
[2019-07-09] MEDS ORDERED: GLYCOPYRROLATE 1 MG/5 ML SYRINGE ONE (08:58)
[2019-07-09] MEDS ORDERED: SUCCINYLCHOLINE 200MG/10ML SYR ONE (08:59)
[2019-07-09] MEDS: POTASSIUM CHLORIDE 10 MEQ/TAB.SA PO SCH (09:00)
[2019-07-09] MEDS ORDERED: PINDOLOL 5 MG TAB PO SCH (09:30)
[2019-07-09] MEDS ORDERED: ATENOLOL 50 MG TABLET PO SCH (10:15)
[2019-07-09] MEDS: LACTULOSE 20 GM/30 ML UDCUP PO SCH (11:06)
[2019-07-09] MEDS: FAMOTIDINE 20MG TAB 20 MG TAB PO SCH (11:07)
[2019-07-09] MEDS: APIXABAN 2.5 MG TABLET PO SCH ×2 (11:07→21:44)
[2019-07-09] MEDS: FOLIC ACID 1 MG TABLET PO SCH (11:07)
[2019-07-09] MEDS: CALCIUM 600 + VITAMIN D 400 TABLET PO SCH (11:08)
[2019-07-09] MEDS: POTASSIUM CHLORIDE 20 MEQ ERTAB PO SCH ×3 (11:08→16:18)
[2019-07-09] MEDS: CYANOCOBALAMIN (VITAMIN B-12) 1,000 MCG TABLET PO SCH (11:08)
[2019-07-09] MEDS: SODIUM CHLORIDE 1,000 MG TAB PO SCH ×3 (11:08→21:44)
[2019-07-09] MEDS: ASPIRIN 81MG TAB.CHEW PO SCH (11:08)
[2019-07-09] MEDS: VANCOMYCIN 750MG + NS 250 ML IV SCH ×2 (11:12)
--- NOTE | 2019-07-09 14:58 | NUR ---
DIEGO EPSTEIN CALLED SAID THAT PATIENT IS ACCEPTED AT 1455. PATIENT WILL GO VIA FACILITY [facility]. NURSE NOTIFIED. JADE DONE. Addendum: 07/09/19 at 1500 by MIREILLE VARMA RN CM Amended: Links added.
--- NOTE | 2019-07-09 15:38 | NUR ---
DC PLAN [employer] PLUMBING ASSEMBLER INSTALLER, TETE OWEN, MADE AWARE OF HELD OF DISCHARGE FOR PATENT DUE TO PENDING ADMINISTRATION OF PINDOLOL 5MG PO.
[2019-07-09] MEDS: PINDOLOL 5 MG TAB PO SCH (21:00)
[2019-07-09] MEDS: BACLOFEN 10 MG TABLET PO SCH (21:44)
[2019-07-09] MEDS: CLONIDINE HCL 0.1 MG TABLET PO SCH (21:45)
[2019-07-10 04:36] VITALS: BP 149/90
[2019-07-10 04:38] LABS: BASOPHILS % (AUTO) 0.5 % (0.0-5.0); HEMATOCRIT 29.8 % (36-48); LYMPHOCYTES % (AUTO) 22.4 % (21.0-51.0); MEAN CORPUSCULAR HEMOGLOBIN 33.9 pg (27.0-33.0); MEAN CORPUSCULAR HGB CONC 33.2 g/dL (32.0-36.0); MEAN CORPUSCULAR VOLUME 102.1 fL (79-99); MONOCYTES % (AUTO) 8.7 % (3.0-13.0); NEUTROPHILS % (AUTO) 67.4 % (40.0-77.0); NUCLEATED RED BLOOD CELLS 0.1 % (0.0-0.19); PLATELET COUNT (AUTO) 150 K/uL (130-400); RED BLOOD CELL COUNT(AUTO) 2.92 MIL/uL (4.00-5.50); WHITE BLOOD COUNT (AUTO) 4.5 K/uL (4.8-10.8)
[2019-07-10 04:52] LABS: CREATININE 0.9 mg/dL (0.5-1.5); POTASSIUM 3.6 mmol/L (3.5-5.1)
[2019-07-10] MEDS: IPRATROPIUM 0.5 MG/2.5 ML INH IH PRN ×2 (07:03→18:41)
[2019-07-10 07:14] VITALS: BP 168/92
[2019-07-10] MEDS: POTASSIUM CHLORIDE 20 MEQ ERTAB PO SCH ×3 (09:00→17:24)
[2019-07-10] MEDS: FAMOTIDINE 20MG TAB 20 MG TAB PO SCH (09:26)
[2019-07-10] MEDS: FUROSEMIDE 10 MG/ML 2ML VIAL IVP SCH (09:26)
[2019-07-10] MEDS: APIXABAN 2.5 MG TABLET PO SCH ×2 (09:27→21:32)
[2019-07-10] MEDS: DRONEDARONE HYDROCHLORIDE 400 MG TABLET PO SCH (09:27)
[2019-07-10] MEDS: FOLIC ACID 1 MG TABLET PO SCH (09:27)
[2019-07-10] MEDS: CALCIUM 600 + VITAMIN D 400 TABLET PO SCH (09:27)
[2019-07-10] MEDS: CYANOCOBALAMIN (VITAMIN B-12) 1,000 MCG TABLET PO SCH (09:28)
[2019-07-10] MEDS: CLONIDINE HCL 0.1 MG TABLET PO SCH ×2 (09:28→21:00)
[2019-07-10] MEDS: ASPIRIN 81MG TAB.CHEW PO SCH (09:29)
[2019-07-10] MEDS: LACTULOSE 20 GM/30 ML UDCUP PO SCH (09:29)
[2019-07-10] MEDS ORDERED: VANCOMYCIN 1GM+NS 250ML 0 ML IV ONE (09:56)
[2019-07-10] MEDS: VANCOMYCIN 750MG + NS 250 ML IV SCH ×2 (10:20)
[2019-07-10 10:56] VITALS: BP 144/77
[2019-07-10] MEDS: PINDOLOL 5 MG TAB PO SCH ×2 (12:15→21:31)
--- NOTE | 2019-07-10 12:15 | NUR ---
INITIAL DOSE OF PINDOLOL GIVEN PO
--- NOTE | 2019-07-10 13:10 | NUR ---
BP 123/91 AFIB HR 130s PATIENT ASLEEP
--- NOTE | 2019-07-10 15:10 | NUR ---
CARI NOTIFICATION/ FOLLOW UP Diet: Regular. PO intake 25% and has poor appetite. Protein supplements refused by patient. She continues with poor po intake and appetite for quite some time now according to her . Pt with history of constipation and has multiple skin tears. CARI recommends continue current diet. Recommend an appetite stimulant. Consider alternate means of nutrition due to failure to thrive. Monitor weight changes daily. CARI will follow up as needed. Casandra Gaston MS, RDN Addendum: 07/10/19 at [address] Amended: Links added.
[2019-07-10 15:12] VITALS: BP 143/95
--- NOTE | 2019-07-10 16:30 | NUR ---
AFIB 140s PATIENT IS ASLEEP
[2019-07-10] MEDS: VERAPAMIL HCL 80 MG TABLET PO SCH ×2 (17:23→21:30)
[2019-07-10 20:20] VITALS: BP_SYST 104; BP_SYST 112; BP_DIAS 77; BP_DIAS 81
[2019-07-10] MEDS: BACLOFEN 10 MG TABLET PO SCH (21:30)
[2019-07-11] VITALS (7 sets, daily range): BP systolic 94–158; BP diastolic 55–107
[2019-07-11 06:01] LABS: BASOPHILS % (AUTO) 0.7 % (0.0-5.0); EOSINOPHILS % (AUTO) 2.6 % (0.0-8.0); HEMATOCRIT 32.9 % (36-48); LYMPHOCYTES % (AUTO) 25.4 % (21.0-51.0); MEAN CORPUSCULAR HGB CONC 33.4 g/dL (32.0-36.0); MEAN CORPUSCULAR VOLUME 104.6 fL (79-99); MONOCYTES % (AUTO) 9.2 % (3.0-13.0); NEUTROPHILS % (AUTO) 62.1 % (40.0-77.0); NUCLEATED RED BLOOD CELLS 0.1 % (0.0-0.19); PLATELET COUNT (AUTO) 135 K/uL (130-400); RED BLOOD CELL COUNT(AUTO) 3.15 MIL/uL (4.00-5.50); RED CELL DISTRIBUTION WIDTH 17.8 % (11.0-15.5); WHITE BLOOD COUNT (AUTO) 5.3 K/uL (4.8-10.8)
[2019-07-11 06:12] LABS: POTASSIUM 4.1 mmol/L (3.5-5.1)
[2019-07-11] MEDS: IPRATROPIUM 0.5 MG/2.5 ML INH IH PRN ×2 (06:37→18:30)
[2019-07-11] MEDS: APIXABAN 2.5 MG TABLET PO SCH ×2 (08:42→22:01)
[2019-07-11] MEDS: CALCIUM 600 + VITAMIN D 400 TABLET PO SCH (08:42)
[2019-07-11] MEDS: FOLIC ACID 1 MG TABLET PO SCH (08:42)
[2019-07-11] MEDS: FAMOTIDINE 20MG TAB 20 MG TAB PO SCH (08:42)
[2019-07-11] MEDS: FUROSEMIDE 10 MG/ML 2ML VIAL IVP SCH (08:42)
[2019-07-11] MEDS: ASPIRIN 81MG TAB.CHEW PO SCH (08:42)
[2019-07-11] MEDS: VERAPAMIL HCL 80 MG TABLET PO SCH ×3 (08:43→21:57)
[2019-07-11] MEDS: CYANOCOBALAMIN (VITAMIN B-12) 1,000 MCG TABLET PO SCH (08:43)
[2019-07-11] MEDS: PINDOLOL 5 MG TAB PO SCH ×2 (08:43→21:59)
[2019-07-11] MEDS: CLONIDINE HCL 0.1 MG TABLET PO SCH ×2 (08:43→21:00)
[2019-07-11] MEDS: LACTULOSE 20 GM/30 ML UDCUP PO SCH (08:43)
[2019-07-11] MEDS: POTASSIUM CHLORIDE 20 MEQ ERTAB PO SCH ×3 (08:44→16:07)
[2019-07-11] MEDS: VANCOMYCIN 750MG + NS 250 ML IV SCH ×2 (08:45)
[2019-07-11] MEDS ORDERED: DILTIAZEM HCL 5 MG/ML 10 ML VIAL IV ONE (11:35)
[2019-07-11] MEDS: DILTIAZEM HCL 125 MG/25 ML 125 MG in SODIUM CHLORIDE 0.9% 100 ML IV PRN (11:43)
[2019-07-11] MEDS ORDERED: DILTIAZEM HCL 5 MG/ML 5 ML VIAL IVP PRN (11:45)
[2019-07-11] MEDS: BACLOFEN 10 MG TABLET PO SCH (21:56)
[2019-07-12 04:01] VITALS: BP 156/91
[2019-07-12 04:15] LABS: BASOPHILS % (AUTO) 0.5 % (0.0-5.0); EOSINOPHILS % (AUTO) 3.2 % (0.0-8.0); HEMATOCRIT 34.5 % (36-48); LYMPHOCYTES % (AUTO) 23.7 % (21.0-51.0); MEAN CORPUSCULAR HEMOGLOBIN 34.3 pg (27.0-33.0); MEAN CORPUSCULAR HGB CONC 33.6 g/dL (32.0-36.0); MEAN CORPUSCULAR VOLUME 102.1 fL (79-99); MONOCYTES % (AUTO) 8.9 % (3.0-13.0); NEUTROPHILS % (AUTO) 63.7 % (40.0-77.0); NUCLEATED RED BLOOD CELLS 0.1 % (0.0-0.19); PLATELET COUNT (AUTO) 143 K/uL (130-400); RED BLOOD CELL COUNT(AUTO) 3.38 MIL/uL (4.00-5.50); RED CELL DISTRIBUTION WIDTH 17.3 % (11.0-15.5); WHITE BLOOD COUNT (AUTO) 4.4 K/uL (4.8-10.8)
[2019-07-12 04:31] LABS: CREATININE 1.2 mg/dL (0.5-1.5); MAGNESIUM 1.9 mg/dL (1.80-2.40); PHOSPHORUS 4.7 mg/dL (2.5-4.9); POTASSIUM 3.5 mmol/L (3.5-5.1)
[2019-07-12] MEDS: IPRATROPIUM 0.5 MG/2.5 ML INH IH PRN ×2 (06:21→18:23)
[2019-07-12 07:50] VITALS: BP 143/98
[2019-07-12] MEDS: CALCIUM 600 + VITAMIN D 400 TABLET PO SCH (09:05)
[2019-07-12] MEDS: LACTULOSE 20 GM/30 ML UDCUP PO SCH (09:05)
[2019-07-12] MEDS: FAMOTIDINE 20MG TAB 20 MG TAB PO SCH (09:06)
[2019-07-12] MEDS: ASPIRIN 81MG TAB.CHEW PO SCH (09:06)
[2019-07-12] MEDS: APIXABAN 2.5 MG TABLET PO SCH ×2 (09:06→20:20)
[2019-07-12] MEDS: PINDOLOL 5 MG TAB PO SCH ×2 (09:06→20:22)
[2019-07-12] MEDS: POTASSIUM CHLORIDE 20 MEQ ERTAB PO SCH ×3 (09:07→16:13)
[2019-07-12] MEDS: FOLIC ACID 1 MG TABLET PO SCH (09:07)
[2019-07-12] MEDS: FUROSEMIDE 10 MG/ML 2ML VIAL IVP SCH (09:07)
[2019-07-12] MEDS: CYANOCOBALAMIN (VITAMIN B-12) 1,000 MCG TABLET PO SCH (09:07)
[2019-07-12] MEDS: CLONIDINE HCL 0.1 MG TABLET PO SCH ×2 (09:07→20:27)
[2019-07-12] MEDS: VERAPAMIL HCL 80 MG TABLET PO SCH ×3 (09:10→20:22)
[2019-07-12] MEDS: VANCOMYCIN 750MG + NS 250 ML IV SCH ×2 (09:10)
[2019-07-12] MEDS: ACETAMINOPHEN 325 MG TAB PO PRN (09:59)
[2019-07-12 11:32] VITALS: BP 115/69
[2019-07-12 15:34] VITALS: BP 147/60
[2019-07-12] MEDS: BACLOFEN 10 MG TABLET PO SCH (20:20)
[2019-07-12 20:29] VITALS: BP 120/54
[2019-07-13 00:03] VITALS: BP 127/62
[2019-07-13 04:41] VITALS: BP 148/92
[2019-07-13 05:39] LABS: BASOPHILS % (AUTO) 0.4 % (0.0-5.0); EOSINOPHILS % (AUTO) 4.5 % (0.0-8.0); HEMATOCRIT 34.7 % (36-48); LYMPHOCYTES % (AUTO) 26.9 % (21.0-51.0); MEAN CORPUSCULAR HEMOGLOBIN 34.4 pg (27.0-33.0); MEAN CORPUSCULAR HGB CONC 33.2 g/dL (32.0-36.0); MEAN CORPUSCULAR VOLUME 103.8 fL (79-99); MONOCYTES % (AUTO) 9.7 % (3.0-13.0); NEUTROPHILS % (AUTO) 58.5 % (40.0-77.0); NUCLEATED RED BLOOD CELLS 0.1 % (0.0-0.19); PLATELET COUNT (AUTO) 136 K/uL (130-400); RED BLOOD CELL COUNT(AUTO) 3.34 MIL/uL (4.00-5.50); RED CELL DISTRIBUTION WIDTH 17.3 % (11.0-15.5); WHITE BLOOD COUNT (AUTO) 4.3 K/uL (4.8-10.8)
[2019-07-13 06:06] LABS: CREATININE 1.1 mg/dL (0.5-1.5); POTASSIUM 3.5 mmol/L (3.5-5.1)
[2019-07-13] MEDS: IPRATROPIUM 0.5 MG/2.5 ML INH IH PRN ×2 (06:42→18:51)
[2019-07-13 07:53] VITALS: BP 158/89
[2019-07-13] MEDS: POTASSIUM CHLORIDE 20 MEQ ERTAB PO SCH ×3 (08:00→17:00)
[2019-07-13] MEDS: DILTIAZEM HCL 125 MG/25 ML 125 MG in SODIUM CHLORIDE 0.9% 100 ML IV PRN (08:28)
[2019-07-13] MEDS: CALCIUM 600 + VITAMIN D 400 TABLET PO SCH (09:00)
[2019-07-13] MEDS: CYANOCOBALAMIN (VITAMIN B-12) 1,000 MCG TABLET PO SCH (09:00)
[2019-07-13] MEDS: CLONIDINE HCL 0.1 MG TABLET PO SCH ×2 (09:00→20:36)
[2019-07-13] MEDS: FUROSEMIDE 10 MG/ML 2ML VIAL IVP SCH (09:00)
[2019-07-13] MEDS: VANCOMYCIN 750MG + NS 250 ML IV SCH ×2 (09:00)
[2019-07-13] MEDS: ASPIRIN 81MG TAB.CHEW PO SCH (09:00)
[2019-07-13] MEDS: FOLIC ACID 1 MG TABLET PO SCH (09:00)
[2019-07-13] MEDS: FAMOTIDINE 20MG TAB 20 MG TAB PO SCH (09:00)
[2019-07-13] MEDS: LACTULOSE 20 GM/30 ML UDCUP PO SCH (09:00)
[2019-07-13] MEDS: APIXABAN 2.5 MG TABLET PO SCH ×2 (09:00→20:38)
[2019-07-13] MEDS: PINDOLOL 5 MG TAB PO SCH ×2 (09:00→20:38)
[2019-07-13] MEDS: VERAPAMIL HCL 80 MG TABLET PO SCH ×3 (09:00→20:35)
[2019-07-13 12:37] VITALS: BP 136/84
--- NOTE | 2019-07-13 12:40 | NUR ---
HOSPICE No family at bedside. SW attempted to reach Walter at [phone], no answer. Will try again.
--- NOTE | 2019-07-13 13:51 | NUR ---
DC PLAN SPOKE TO ЕКАТЕРИНА SULTANA AND DR. QUISPE SAID SET UP HOSPICE. COMFORT MEASURES. LET OXANA STODDARD KNOW OF REFERRAL. RECOMMENDS [facility] LET HIM KNOW OXANA WAS ALREADY WORKING OF REFERRAL. Addendum: 07/13/19 at 1352 by MIREILLE VARMA RN CM Amended: Links added.
--- NOTE | 2019-07-13 15:32 | NUR ---
GIP VS HOSPICE VS NH SW met with pt and . states he was told pt could stay here at hospital with hospice until she passed. Pt does not meet criteria for inpt hospice. is unable to take pt home. Pt does not have Medicaid for NH with hospice. can not drive to [facility] or [place] for hospice house. said forget hospice, send her to a NH. SW spoke to CM and informed of above. CM to see if pt meets criteria for SNF placement. SW to follow and assist as needed
[2019-07-13 15:36] VITALS: BP 130/76
[2019-07-13 20:02] VITALS: BP 122/87
[2019-07-13] MEDS: BACLOFEN 10 MG TABLET PO SCH (20:35)
[2019-07-14 00:23] VITALS: BP 93/62
[2019-07-14 04:00] VITALS: BP 128/78
[2019-07-14 04:31] LABS: BASOPHILS % (AUTO) 0.5 % (0.0-5.0); EOSINOPHILS % (AUTO) 2.9 % (0.0-8.0); HEMATOCRIT 34.2 % (36-48); LYMPHOCYTES % (AUTO) 25.5 % (21.0-51.0); MEAN CORPUSCULAR HEMOGLOBIN 34.1 pg (27.0-33.0); MEAN CORPUSCULAR HGB CONC 33.5 g/dL (32.0-36.0); MEAN CORPUSCULAR VOLUME 101.9 fL (79-99); MONOCYTES % (AUTO) 9.8 % (3.0-13.0); NEUTROPHILS % (AUTO) 61.3 % (40.0-77.0); PLATELET COUNT (AUTO) 148 K/uL (130-400); RED BLOOD CELL COUNT(AUTO) 3.36 MIL/uL (4.00-5.50); WHITE BLOOD COUNT (AUTO) 5.2 K/uL (4.8-10.8)
--- NOTE | 2019-07-14 04:49 | NUR ---
PATIENT RESTING IN BED. HEART RATE A FLUTTER 110 AT BEGINNING OF SHIFT. CURRENTLY A- FIB 80. PATIENT DENIES PAIN OR SOB. ABLE TO STATE NAME AND . PENDING SNF PLACEMENT.
[2019-07-14 05:02] LABS: CREATININE 0.9 mg/dL (0.5-1.5); POTASSIUM 3.3 mmol/L (3.5-5.1)
[2019-07-14] MEDS: IPRATROPIUM 0.5 MG/2.5 ML INH IH PRN ×2 (07:13→18:26)
[2019-07-14 07:26] VITALS: BP 134/93
[2019-07-14] MEDS: VERAPAMIL HCL 80 MG TABLET PO SCH ×3 (09:04→20:52)
[2019-07-14] MEDS: POTASSIUM CHLORIDE 20 MEQ ERTAB PO SCH ×3 (09:04→16:28)
[2019-07-14] MEDS: CALCIUM 600 + VITAMIN D 400 TABLET PO SCH (09:04)
[2019-07-14] MEDS: CYANOCOBALAMIN (VITAMIN B-12) 1,000 MCG TABLET PO SCH (09:04)
[2019-07-14] MEDS: PINDOLOL 5 MG TAB PO SCH ×2 (09:04→20:52)
[2019-07-14] MEDS: APIXABAN 2.5 MG TABLET PO SCH ×2 (09:05→20:51)
[2019-07-14] MEDS: FOLIC ACID 1 MG TABLET PO SCH (09:05)
[2019-07-14] MEDS: CLONIDINE HCL 0.1 MG TABLET PO SCH ×2 (09:05→20:52)
[2019-07-14] MEDS: ASPIRIN 81MG TAB.CHEW PO SCH (09:06)
[2019-07-14] MEDS: FUROSEMIDE 10 MG/ML 2ML VIAL IVP SCH (09:06)
[2019-07-14] MEDS: FAMOTIDINE 20MG TAB 20 MG TAB PO SCH (09:06)
[2019-07-14] MEDS: LACTULOSE 20 GM/30 ML UDCUP PO SCH (09:07)
[2019-07-14] MEDS: VANCOMYCIN 750MG + NS 250 ML IV SCH ×2 (09:17)
--- NOTE | 2019-07-14 10:42 | NUR ---
DC PLAN VISITED WITH PATIENT AND SPOUSE. SPOKE TO HIM SEVERAL TIMES YESTERDAY AND TODAY. THOUGHT PATIENT COULD STAY IN HOSPITAL WITH HOSPICE AND THAT INSURANCE WOULD PAY. EXPLAINED THAT PATIENT DOES NOT QUALIFY FOR HOSPICE IN HOSPITAL NO PAIN OR AIRWAY ISSUES. SAID CANNOT TAKE PATIENT HOME. SAYS CAN NOT AFFORD PRIVATE PROVIDER AND HOSPICE PROVIDER WOULD NOT BE ENOUGH. DOES NOT WANT HOSPICE HOUSE SAYS ITS TO FAR. SAYS INSURANCE TOLD HIM THAT THEY WOULD PAY FOR HOSPICE AT FACILITY EXPLAINED THAT YES IT WOULD COVER THE HOSPICE BUT THAT THERE WOULD STILL BE THE FACILITY CHARGE. PATIENT DOES NOT HAVE MEDICAID. SPOUSE DOES NOT APPEAR TO UNDERSTAND THE PROCESS ME AND THE FINANCIAL ACCOUNTING MANAGER HAVE EXPLAINED IT SEVERAL TIMES. AT THIS POINT SAYS WANTS TO GO BACK TO GOING TO SNF FOR THERAPY MAYBE WILL GET BETTER. GAVE ME AN AUTH FOR SNF [id number] EXPLAINED THAT WHILE THE INSURANCE CAN SAY THEY APPROVE IT THE FACILITY WILL NOT TAKE PATIENT WITH GTT. THEY CAN NOT GIVE THAT MEDICATION AT A SNF. SAID HE UNDERSTANDS AND THAT WE NEED TO GET HER OFF THE MED SOON POSSIBLE. EXPLAINED THAT WE HAVE BEEN TRYING FOR THE LAST WEEK MEDICATION IS BASED ON PATIENT VITALS. Addendum: 07/14/19 at 1049 by MIREILLE VARMA RN CM Amended: Links added.
[2019-07-14 11:38] VITALS: BP 121/67
[2019-07-14 15:28] VITALS: BP 117/70
[2019-07-14 20:13] VITALS: BP 113/67
[2019-07-14] MEDS: BACLOFEN 10 MG TABLET PO SCH (20:51)
[2019-07-15] VITALS (8 sets, daily range): BP systolic 84–140; BP diastolic 42–82
--- NOTE | 2019-07-15 04:13 | NUR ---
Patient resting in bed. Denies pain. Heart Rate A-fib 90s. Off cardizem drip. Patient can state name and follows simple commands. Bed alarm on. Does not attempt to get out of bed. Excoriation to bottom. Applying barrier cream.
[2019-07-15] MEDS: IPRATROPIUM 0.5 MG/2.5 ML INH IH PRN ×2 (06:34→18:18)
[2019-07-15 09:20] LABS: HEMATOCRIT 33.6 % (36-48); MEAN CORPUSCULAR HEMOGLOBIN 34.4 pg (27.0-33.0); MEAN CORPUSCULAR HGB CONC 33.6 g/dL (32.0-36.0); MEAN CORPUSCULAR VOLUME 102.5 fL (79-99); PLATELET COUNT (AUTO) 126 K/uL (130-400); RED BLOOD CELL COUNT(AUTO) 3.28 MIL/uL (4.00-5.50); RED CELL DISTRIBUTION WIDTH 16.3 % (11.0-15.5); WHITE BLOOD COUNT (AUTO) 4.7 K/uL (4.8-10.8)
[2019-07-15 09:29] LABS: CREATININE 1.1 mg/dL (0.5-1.5); POTASSIUM 3.4 mmol/L (3.5-5.1)
--- NOTE | 2019-07-15 09:30 | NUR ---
GIVEN SCHEDULED MEDICATIONS CRUSHED AND WITH APPLESAUCE. TOLERATED WELL. PATIENT GOES RIGHT BACK TO SLEEP SOON GIVEN MEDICATIONS OR ANY OTHER ACTIVITY.
[2019-07-15] MEDS: CALCIUM 600 + VITAMIN D 400 TABLET PO SCH (09:33)
[2019-07-15] MEDS: ASPIRIN 81MG TAB.CHEW PO SCH (09:33)
[2019-07-15] MEDS: FOLIC ACID 1 MG TABLET PO SCH (09:33)
[2019-07-15] MEDS: FAMOTIDINE 20MG TAB 20 MG TAB PO SCH (09:33)
[2019-07-15] MEDS: APIXABAN 2.5 MG TABLET PO SCH ×2 (09:33→21:27)
[2019-07-15] MEDS: VERAPAMIL HCL 80 MG TABLET PO SCH ×3 (09:34→21:23)
[2019-07-15] MEDS: CYANOCOBALAMIN (VITAMIN B-12) 1,000 MCG TABLET PO SCH (09:34)
[2019-07-15] MEDS: PINDOLOL 5 MG TAB PO SCH ×2 (09:34→21:27)
[2019-07-15] MEDS: FUROSEMIDE 10 MG/ML 2ML VIAL IVP SCH (09:35)
[2019-07-15] MEDS: ACETAMINOPHEN 325 MG TAB PO PRN (09:35)
[2019-07-15] MEDS: CLONIDINE HCL 0.1 MG TABLET PO SCH ×2 (09:35→21:26)
[2019-07-15] MEDS: LACTULOSE 20 GM/30 ML UDCUP PO SCH (09:36)
[2019-07-15] MEDS: POTASSIUM CHLORIDE 20 MEQ ERTAB PO SCH ×3 (09:36→17:16)
[2019-07-15] MEDS: VANCOMYCIN 750MG + NS 250 ML IV SCH ×2 (09:49)
--- NOTE | 2019-07-15 12:30 | NUR ---
POOR APPETITE, DOES NOT STAY AWAKE ENOUGH TO FEED HER LUNCH MEAL. DRANK JUICE WITH CRUSHED MEDS.
--- NOTE | 2019-07-15 14:01 | NUR ---
RD NOTIFICATION/ FOLLOW UP Pt continues with very poor po and appetite since admission. RD continues to follow up with patient and it seems that she has been declining everyday since [place] [facility] Pt is now in and out of sleep with AMS/confusion. Pt unable to eat meals adequately due to not being fully awake as per RN. Mental health declined, she is also very frail and weak. Patient has refused to drink oral supplements since admission. Pt with multiple skin tears, noted. RD spoke to RN about dietary concerns for this patient. Recommendations: Consider alternate means of nutrition Assistance with all meals please Appetite Stimulant RD will continue to follow up, thank you. Addendum: 07/15/19 at [address] Amended: Links added.
--- NOTE | 2019-07-15 14:20 | NUR ---
DIEGO EPSTEIN CALLED SAID THAT PATIENT ACCEPTED AT 1400. LET NURSE AND ANIMAL DOCTOR KNOW. PATIENT HAD A LOW BP LET ANIMAL DOCTOR KNOW. ALSO LET HER KNOW ABOUT DOCUMENTATION. PATIENT AND SPOUSE. CHANGED MIND DO NOT WANT HOSPICE. WANT SNF FOR THERAPY. NOTES FROM YESTERDAY NEEDED TO BE CORRECTED. Addendum: 07/15/19 at 1422 by MIREILLE VARMA RN CM Amended: Links added.
--- NOTE | 2019-07-15 16:30 | NUR ---
REMAINS ASLEPP AND COMFORTABLE. NO RESP DISTRESS NOTED. TELE READING ATRIAL FIB 82.
[2019-07-15] MEDS: BACLOFEN 10 MG TABLET PO SCH (21:24)
[2019-07-16 03:32] VITALS: BP 111/83
[2019-07-16 07:00] VITALS: BP 141/91
[2019-07-16] MEDS: IPRATROPIUM 0.5 MG/2.5 ML INH IH PRN ×2 (07:15→19:19)
[2019-07-16] MEDS: LACTULOSE 20 GM/30 ML UDCUP PO SCH (09:00)
[2019-07-16 09:32] LABS: HEMATOCRIT 33.8 % (36-48); MEAN CORPUSCULAR HEMOGLOBIN 33.8 pg (27.0-33.0); MEAN CORPUSCULAR HGB CONC 33.3 g/dL (32.0-36.0); MEAN CORPUSCULAR VOLUME 101.3 fL (79-99); PLATELET COUNT (AUTO) 137 K/uL (130-400); RED BLOOD CELL COUNT(AUTO) 3.33 MIL/uL (4.00-5.50); RED CELL DISTRIBUTION WIDTH 16.5 % (11.0-15.5); WHITE BLOOD COUNT (AUTO) 4.8 K/uL (4.8-10.8)
[2019-07-16 09:46] LABS: POTASSIUM 3.9 mmol/L (3.5-5.1)
[2019-07-16 10:13] LABS: ABG BASE EXCESS 0.8 mmol/L (-2.0-3.0); ABG HCO3 23.6 mmol/L (21.0-28.0); ABG OXYGEN SATURATION 96.8 % (95.0-99.0); ABG PCO2 33 mmHg (32-45)
[2019-07-16] MEDS: APIXABAN 2.5 MG TABLET PO SCH ×2 (10:57→21:04)
[2019-07-16] MEDS: VANCOMYCIN 750MG + NS 250 ML IV SCH ×2 (10:57)
[2019-07-16] MEDS: ASPIRIN 81MG TAB.CHEW PO SCH (10:57)
[2019-07-16] MEDS: FAMOTIDINE 20MG TAB 20 MG TAB PO SCH (10:57)
[2019-07-16] MEDS: CLONIDINE HCL 0.1 MG TABLET PO SCH ×2 (10:58→21:21)
[2019-07-16] MEDS: PINDOLOL 5 MG TAB PO SCH ×2 (10:58→21:04)
[2019-07-16] MEDS: FOLIC ACID 1 MG TABLET PO SCH (10:58)
[2019-07-16] MEDS: VERAPAMIL HCL 80 MG TABLET PO SCH ×3 (10:58→21:20)
[2019-07-16] MEDS: CYANOCOBALAMIN (VITAMIN B-12) 1,000 MCG TABLET PO SCH (10:59)
[2019-07-16 11:00] VITALS: BP 134/92
[2019-07-16] MEDS: CALCIUM 600 + VITAMIN D 400 TABLET PO SCH (11:00)
[2019-07-16] MEDS: POTASSIUM CHLORIDE 20 MEQ ERTAB PO SCH ×3 (11:00→16:35)
[2019-07-16] MEDS: FUROSEMIDE 10 MG/ML 2ML VIAL IVP SCH (11:00)
--- NOTE | 2019-07-16 11:24 | NUR ---
DC PLAN SPOKE TO SAYS WE ARE JUST MAKING EXCUSES FOR NOT TRANSFERRING PATIENT. SAYS WANTS HER MOVED TODAY. EXPLAINED THAT YESTERDAY WE HAD AUTH AND WERE GOING TO MOVE PATIENT WHEN HER BP WENT DOWN TO 80/40 70'S/40 AND THAT FACILITY WOULD NOT TAKE PATIENT WITH LOW BP OR HIGH HEART RATE. SAID THEY HAVE BEEN TRYING TO CONTROL THAT FOR 2 YEARS AND THAT IS HER NORMAL. EXPLAINED THAT FACILITY WOULD NOT FEEL COMFORTABLE WITH THAT AND THEY WOULD RETURN PATIENT. SAID HE DID NOT BELIEVE ME AND WANTED TO TALK TO FACILITY. CALLED TETE TOLD HER WHAT HE SAID SAID SHE WOULD CALL HIM WITH DON SO THAT SHE CAN REINFORCE THAT PATIENT MUST BE STABLE IN ORDER TO TRANSFER. Addendum: 07/16/19 at 1130 by MIREILLE VARMA RN Amended: Links added.
[2019-07-16] MEDS: MEGESTROL 400 MG/10 ML UDCUP PO SCH (13:41)
[2019-07-16 15:00] VITALS: BP 96/69
[2019-07-16 19:58] VITALS: BP 146/86
[2019-07-16] MEDS: BACLOFEN 10 MG TABLET PO SCH (21:04)
[2019-07-17] VITALS (7 sets, daily range): BP systolic 73–127; BP diastolic 46–87
[2019-07-17 04:48] LABS: MEAN CORPUSCULAR HEMOGLOBIN 34.1 pg (27.0-33.0); MEAN CORPUSCULAR HGB CONC 33.4 g/dL (32.0-36.0); MEAN CORPUSCULAR VOLUME 101.9 fL (79-99); NUCLEATED RED BLOOD CELLS 0.1 % (0.0-0.19); PLATELET COUNT (AUTO) 130 K/uL (130-400); RED BLOOD CELL COUNT(AUTO) 3.44 MIL/uL (4.00-5.50); RED CELL DISTRIBUTION WIDTH 16.3 % (11.0-15.5)
[2019-07-17 04:50] LABS: CREATININE 1.1 mg/dL (0.5-1.5); POTASSIUM 4.4 mmol/L (3.5-5.1)
[2019-07-17] MEDS: IPRATROPIUM 0.5 MG/2.5 ML INH IH PRN ×2 (06:11→18:53)
[2019-07-17] MEDS: ASPIRIN 81MG TAB.CHEW PO SCH (08:39)
[2019-07-17] MEDS: VERAPAMIL HCL 80 MG TABLET PO SCH ×3 (08:42→21:35)
[2019-07-17] MEDS: FOLIC ACID 1 MG TABLET PO SCH (08:43)
[2019-07-17] MEDS: CALCIUM 600 + VITAMIN D 400 TABLET PO SCH (08:43)
[2019-07-17] MEDS: MEGESTROL 400 MG/10 ML UDCUP PO SCH (08:43)
[2019-07-17] MEDS: POTASSIUM CHLORIDE 20 MEQ ERTAB PO SCH ×3 (08:43→16:20)
[2019-07-17] MEDS: FAMOTIDINE 20MG TAB 20 MG TAB PO SCH (08:43)
[2019-07-17] MEDS: CLONIDINE HCL 0.1 MG TABLET PO SCH (08:43)
[2019-07-17] MEDS: CYANOCOBALAMIN (VITAMIN B-12) 1,000 MCG TABLET PO SCH (08:43)
[2019-07-17] MEDS: APIXABAN 2.5 MG TABLET PO SCH ×2 (08:43→21:35)
[2019-07-17] MEDS: FUROSEMIDE 10 MG/ML 2ML VIAL IVP SCH (08:43)
[2019-07-17] MEDS: LACTULOSE 20 GM/30 ML UDCUP PO SCH (09:00)
[2019-07-17] MEDS: VANCOMYCIN 750MG + NS 250 ML IV SCH ×2 (10:38)
[2019-07-17] MEDS: PINDOLOL 5 MG TAB PO SCH ×2 (10:40→21:35)
[2019-07-17] MEDS ORDERED: SODIUM CHLORIDE 0.9% 250 ML IV ONE (11:12)
--- NOTE | 2019-07-17 13:47 | NUR ---
RD FOLLOW UP Diet: Regular. Pt continues with poor po intake and appetite. She requires assisted feedings with all meals. Pt ate oatmeal and drank OAna this am with nurse. Pt now on an appetite stimulant. Recommendations: Continue current diet recommendations Encourage feedings at all meals RD will continue to follow up Addendum: 07/17/19 at [address] Amended: Links added.
--- NOTE | 2019-07-17 15:11 | NUR ---
DIEGO PLAN TETE CALLED SAID PATIENT RE ACCEPTED. PATIENT BLOOD PRESSURE DROPPED. SPOKE TO DR. RODRIGUEZ REGARDING ETA IF PATIENT WAS TO WITHDRAW ALL CARE FOR . SAID HE IS NOT GOD AND CANNOT MAKE THAT DETERMINATION. HE CAN SAY THAT SHE SHOULD BE HOSPICE AND COMFORT MEASURES IS APPROPRIATE HE DOES NOT FEEL SHE WOULD BENEFIT AT THIS POINT FROM [facility] TO HELP WITH BLOOD PREASSURE OR HEART RATE. DECK MATE DID OFFER THEM TO THE BUT HE SAID NO TO TRANSFER TO ICU AND NO TO [facility]. OXANA FISH HOUSE WORKER AND I SPOKE TO HE IS OKAY WITH COMFORT MEASURES AND UNDERSTANDS THAT IF BY SATURDAY SHE IS STILL WITH US THEN HE IS OKAY WITH GOING TO A COMFORT HOUSE. HE UNDERSTANDS THAT AND WILL GO TOUR AND IS OKAY WITH [facility] (DR. RODRIGUEZ RECOMMENDATION ) TO COME SEE HIM. DR. RODRIGUEZ WILL TALK TO HOSPICE TO SEE IF SPOUSE COULD GET MORE HELP AT HOME IN CASE THEY DO WANT TO GO HOME. LET DIRECTOR KNOW OF CONVERSATIONS. Addendum: 07/17/19 at 1547 by MIREILLE VARMA RN CM Amended: Links added.
--- NOTE | 2019-07-17 15:40 | NUR ---
HOSPICE Once again, changed his mind and does not want to take pt home with hospice, states he can't do it. is agreeable to starting comfort measures while we make arrangements for hospice with [facility]. aware that he must tour facility and states he can do Saturday. signed consent. SW spoke to [facility] [phone] who is here meeting with to complete paperwork. DCP pending acceptance by [facility] and Ambre Rees
--- NOTE | 2019-07-17 21:00 | NUR ---
PT HAS BEEN LETHARGIC. PLACED ON COMFORT CARE. ABLE TO WAKE UP TO TOUCH AND ABLE TO NOD. BLOOD PRESSURE DID INCREASE. PT GBW NOTED. HAD TO CRUSH MEDICATIONS. PT UNABLE TO TAKE FULL MEDICATIONS WHOLE AT THIS TIME.
[2019-07-18 04:12] VITALS: BP 118/89
[2019-07-18] MEDS: IPRATROPIUM 0.5 MG/2.5 ML INH IH PRN ×2 (06:31→18:27)
[2019-07-18 07:15] VITALS: BP 133/75
[2019-07-18] MEDS: POTASSIUM CHLORIDE 20 MEQ ERTAB PO SCH ×3 (08:00→14:31)
--- NOTE | 2019-07-18 08:00 | NUR ---
ASSESSMENT PT IS RESTING IN BED, LETHARGIC, WITH EYES CLOSED. WHEN ASKED QUESTIONS SHE CAN NOD HER HEAD YES OR NO, NODS "NO" WHEN ASKED IF SHES IN PAIN. POOR SWALLOWING EFFORT NOTED. HOB UP AT 30 DEGREES. UNABLE TO GIVE MEDS. DOOR AJAR BLINDS OPEN, CONTINUING TO MONITOR.
[2019-07-18] MEDS: ASPIRIN 81MG TAB.CHEW PO SCH (08:38)
[2019-07-18] MEDS: MEGESTROL 400 MG/10 ML UDCUP PO SCH (08:38)
[2019-07-18] MEDS: VERAPAMIL HCL 80 MG TABLET PO SCH ×3 (08:38→21:00)
[2019-07-18] MEDS: CYANOCOBALAMIN (VITAMIN B-12) 1,000 MCG TABLET PO SCH (08:38)
[2019-07-18] MEDS: FAMOTIDINE 20MG TAB 20 MG TAB PO SCH (08:38)
[2019-07-18] MEDS: PINDOLOL 5 MG TAB PO SCH ×2 (08:38→21:00)
[2019-07-18] MEDS: FOLIC ACID 1 MG TABLET PO SCH (08:38)
[2019-07-18] MEDS: CALCIUM 600 + VITAMIN D 400 TABLET PO SCH (08:38)
[2019-07-18] MEDS: LACTULOSE 20 GM/30 ML UDCUP PO SCH (08:38)
[2019-07-18] MEDS: APIXABAN 2.5 MG TABLET PO SCH (08:38)
--- NOTE | 2019-07-18 09:41 | NUR ---
TRANSFER Report phoned to 4th floor nurse receiving pt to room 429. Pt's spouse at bedside - aware of transfer.
--- NOTE | 2019-07-18 10:04 | NUR ---
received pt as transfer from unit; she is non verbal, resting in bed, at bedside; stanford cathetor in place secured to leg; i am told she is a DNR, comfort measures only
[2019-07-18 11:00] VITALS: BP 138/94
--- NOTE | 2019-07-18 13:56 | NUR ---
director career services Carlos oconnell here to see patient; she gave me verbal order for morphine prn for pt's hospice medication profile treatment; pt's is at bedside and he had no questions for Candido at this time.; pt is restless in bed and is concerned; will give the prn morphine
[2019-07-18] MEDS: MORPHINE SULFATE 2 MG/ML 1ML SYG IVP PRN ×2 (14:33→21:33)
--- NOTE | 2019-07-18 21:37 | NUR ---
REPIRATIONS OF 32 WILL GIVE MORPHINE PATIENT LOOKS UMCORTABLE AND RESTLESS
[2019-07-19] MEDS ORDERED: PHARMACY COMMUNICATION MISC SCH (00:45)
[2019-07-19] MEDS ORDERED: LORAZEPAM 2 MG/ML 1 ML VIAL IM PRN (00:45)
--- NOTE | 2019-07-19 00:48 | NUR ---
2 MG OF MORPHINE IVP GIVEN AT THIS TIME [facility]ARMAC[facility]
--- NOTE | 2019-07-19 04:01 | NUR ---
ATIVAN 1 MG IVP GIVEN AT THIS TIME PENDING FOR PHARMACY TO APPROVE THE EDIT ON THE ORDER FORM INTRAMUSCULAR, TO INTRAVENOUS PUSH
[2019-07-19] MEDS ORDERED: LORAZEPAM 2 MG/ML 1 ML VIAL IVP PRN (04:45)
[2019-07-19] MEDS ORDERED: MORPHINE SULFATE 2 MG/ML 1ML SYG ONE (05:10)
--- NOTE | 2019-07-19 05:16 | NUR ---
PT WITH RESPIRATIONS OF 50 A MINUTE SHALLOW BREATHING, LABORED ACCESSORY MUSCLES BREATHING MORPHINE GIVEN WILL CONTINUE TO MONITOR AND PROVIDE COMFORT MEASURES
[2019-07-19] MEDS: IPRATROPIUM 0.5 MG/2.5 ML INH IH PRN ×2 (06:50→18:34)
[2019-07-19 08:00] VITALS: BP 93/57
[2019-07-19] MEDS: POTASSIUM CHLORIDE 20 MEQ ERTAB PO SCH ×3 (08:00→16:30)
[2019-07-19] MEDS: PINDOLOL 5 MG TAB PO SCH (09:00)
[2019-07-19] MEDS: VERAPAMIL HCL 80 MG TABLET PO SCH ×2 (09:00→12:58)
[2019-07-19] MEDS: MORPHINE SULFATE 2 MG/ML 1ML SYG IVP PRN ×5 (09:50→23:25)
--- NOTE | 2019-07-19 10:06 | NUR ---
pt's is here now; i have updated him on pt's current vs her condition; he states understanding that she may pass away soon; i have talked to him about his family and he stated he does have a daughter in [place] and he has been updating her and that he may ask her to come down now; pt's respirations are very rapid, i have given her morphine to held calm her down. will cont to monitor and continue comfort measures.
--- NOTE | 2019-07-19 11:48 | NUR ---
pt's respirations 50 a minute; morphine given for comfort measures.
--- NOTE | 2019-07-19 14:37 | NUR ---
pt with respirations of 40 heart rate of 160; morphine given for comfort measures. at bedside
[2019-07-19 20:00] VITALS: BP 68/56
--- NOTE | 2019-07-19 23:25 | NUR ---
avni's respiration 56 heart rate 185 labor breathing mouth breathing accessory muscles breathing morphine given for comfort measures
--- NOTE | 2019-07-20 01:15 | NUR ---
CALLED TO PRONOUNCE KIM MOSQUERA ON THIS DAY JULY 20, 2019 AT 0115. ABSENCE OF APICAL AND CAROTID PULSE NOTED, NO RESPIRATIONS NOTED AND NO BILATERAL PAPILLARY LIGHT REFLEXES NOTED. NO FAMILY AT BEDSIDE. NOTIFIED AND DECLINES AUTOPSY.
--- NOTE | 2019-07-20 01:15 | NUR ---
patient pronounced by housesmith samir patient
--- NOTE | 2019-07-20 01:17 | NUR ---
[employer] worker paged to notify of patient's pending call back
--- NOTE | 2019-07-20 01:20 | NUR ---
patient's spouse called, aware of that patient had spouse refuses autopsy on patient visiting housekeeper spoke with patient's spouse and made him aware patient will be in the [facility] and he can see her there, later today since spouse of patient states he is not able to drive at this time, and would be able to be here tomorrow morning around 8 am. spouse states he wants [facility] sup aware
--- NOTE | 2019-07-20 01:45 | NUR ---
called SAMANTHA lara w/ "[employer]" she stated patient is not eligible for any type of donation since patient is over age of 74 account number in the certificate
--- NOTE | 2019-07-20 02:10 | NUR ---
still pending call from [employer] [facility] anish carlos is chief of safety and protection paged her again
--- NOTE | 2019-07-20 02:30 | NUR ---
breanna oconnell, called back aware that patient asked if she knew for sure dr. celina denis would sign certificate , since she is admitted under his name anish stated she cannot verify that, but will notify dr. patrick in am today
--- NOTE | 2019-07-20 03:01 | NUR ---
patient taken by security solutions engineer to the [facility] with rings on ther left hand wedding finger one ring was yellow color the second one was also yellow color with a red stone in the middle house sup aware security solutions engineer aware
== END 2019-07-20 01:15 | disposition expired | DRG 871 ==
LOC: EDH 13:21 → EDHIP 16:30 → OBSVTOIN 16:30 → 3DH 20:55 → 2AH 22:17 → 4AH 07-18 09:52
PROVIDERS: ADMIT Internal Medicine Critical Care Medicine; ATTEND Internal Medicine Critical Care Medicine
PROC: 5A2204Z Restoration of Cardiac Rhythm, Single (ICD-10-PCS; principal; 2019-07-09)
DX: A41.02 Sepsis due to Methicillin resistant Staphylococcus aureus (principal); I50.31 Acute diastolic (congestive) heart failure; J18.9 Pneumonia, unspecified organism; G93.41 Metabolic encephalopathy; E87.1 Hypo-osmolality and hyponatremia; I48.19 Other persistent atrial fibrillation; I48.91 Unspecified atrial fibrillation; Z79.01 Long term (current) use of anticoagulants; R29.6 Repeated falls; E78.5 Hyperlipidemia, unspecified; E87.6 Hypokalemia; I95.1 Orthostatic hypotension; M32.9 Systemic lupus erythematosus, unspecified; I25.5 Ischemic cardiomyopathy; K59.00 Constipation, unspecified; I49.3 Ventricular premature depolarization; Z66 Do not resuscitate; Z51.5 Encounter for palliative care; E03.9 Hypothyroidism, unspecified; D64.9 Anemia, unspecified; H54.61 Unqualified visual loss, right eye, normal vision left eye; R54 Age-related physical debility; I25.10 Atherosclerotic heart disease of native coronary artery without angina pectoris; I11.0 Hypertensive heart disease with heart failure; I25.2 Old myocardial infarction; Z74.01 Bed confinement status; Z79.899 Other long term (current) drug therapy; Z82.49 Family history of ischemic heart disease and other diseases of the circulatory system; Z86.73 Personal history of transient ischemic attack (TIA), and cerebral infarction without residual deficits; Z95.1 Presence of aortocoronary bypass graft
CPT/HCPCS: 36415; 36600; 70450; 71045; 72125; 80048; 80053; 80202; 81003; 82550; 82803; 83605; 83735; 83874; 83880; 84100; 84132; 84443; 84484; 85025; 85027; 85378; 85610; 85730; 87040; 87077; 87088; 87186; 90714; 93005; 93306; 94640; 94664; 97039; A4344; G0378; J0330; J0360; J0696; J1940; J1956; J2060; J2405; J2704; J3370; J3475; J3480; J3490; J7030